=== PATIENT | male | born 1965 | race Two or more races ===

== ENCOUNTER 2018-10-05 19:37 | Inpatient (IN) | payer OTHER ==
[~2018-10-05] VITALS: Ht 170.2 cm; Wt 73.9 kg
--- NOTE | 2018-10-05 19:44 | NUR ---
PT BIB SELF FROM HOME FOR ABD PAIN AND BACK PAIN, PT AAOX4, -SOB, NAD NOTED, VSS, PENDING MD PIKE
[2018-10-05 20:24] LABS: BASOPHILS % (AUTO) 0.5 % (0.0-2.0); EOSINOPHILS % (AUTO) 1.7 % (0.0-6.0); HEMATOCRIT 44 % (39-51); HEMOGLOBIN 14.7 g/dL (13.5-17.5); LYMPHOCYTES # (AUTO) 1.7 /CMM (0.8-4.8); LYMPHOCYTES % (AUTO) 17.3 % (20.0-44.0); MEAN CORPUSCULAR HGB CONC 33 g/dl (31.0-36.0); MEAN CORPUSCULAR VOLUME 81 fL (80-96); MONOCYTES # (AUTO) 0.9 /CMM (0.1-1.30); NEUTROPHILS # (AUTO) 6.9 /CMM (1.8-8.9); NEUTROPHILS % (AUTO) 71.5 % (43.0-81.0); PLATELET COUNT (AUTO) 164 /CMM (150-450); RED BLOOD CELL COUNT(AUTO) 5.46 MIL/uL (4.5-6.0); WHITE BLOOD COUNT (AUTO) 9.6 K/uL (4.3-11.0)
[2018-10-05] MEDS ORDERED: IBUPROFEN 600 MG TABLET PO ONE ×2 (20:30→20:42)
[2018-10-05] MEDS ORDERED: ACETAMINOPHEN ES 500 MG TABLET PO ONE (20:30)
[2018-10-05 20:35] LABS: CARBON DIOXIDE 22 mmol/L (21-32); CHLORIDE 105 mmol/L (98-107); CREATININE 1.3 mg/dL (0.6-1.3); GLUCOSE 171 mg/dL (74-106); POTASSIUM 4.1 mmol/L (3.5-5.1); SODIUM SERUM 140 mmol/L (136-145); UREA NITROGEN, BLOOD 14 mg/dL (7-18)
[2018-10-05 20:37] LABS: APPEARANCE,URINE Clear (CLEAR); BILIRUBIN,URINE Negative (NEGATIVE); BLOOD, URINE Small Ery/uL (NEGATIVE); COLOR,URINE Yellow (YELLOW); KETONES,URINE Negative (NEGATIVE); LEUKOCYTE ESTERASE ,URINE Negative (NEGATIVE); NITRITE, URINE Negative (NEGATIVE); PROTEIN,URINE Trace mg/dl (NEGATIVE); UGLUCOSE 500 MG/DL mg/dL (NEGATIVE); UROBILINOGEN,URINE 0.2 EU/dL (0.2)
[2018-10-05] MEDS ORDERED: ACETAMINOPHEN ES 500 MG TABLET ONE (20:41)
[2018-10-05 20:42] LABS: ALANINE AMINOTRANSFERASE 47 U/L (12-78); ALBUMIN 3.5 g/dL (3.4-5.0); ALKALINE PHOSPHATASE 92 U/L (46-116); ASPARTATE AMINOTRANSFERASE 23 U/L (15-37); BILIRUBIN,DIRECT 0.1 mg/dL (0.0-0.2); BILIRUBIN,TOTAL 0.4 mg/dL (0.2-1.0); LIPASE 129 U/L (73-393); TOTAL PROTEIN, SERUM 7.8 g/dL (6.4-8.2)
[2018-10-05 20:43] LABS: BACTERIA,URINE Rare /HPF (None Seen); SQUAMOUS EPITHELIAL CELL,UR Few /HPF (None Seen); WBC,URINE NONE SEEN /HPF (0-3)
--- NOTE | 2018-10-05 20:44 | NUR ---
PT MEDICATED ORDERED.
[2018-10-05] MEDS ORDERED: IOHEXOL-300 100 ML VIAL IV ONE (21:10)
--- NOTE | 2018-10-05 21:15 | NUR ---
L AC 20G IV FOR CONTRAST CT.
[2018-10-05] MEDS ORDERED: PIPERACILLIN /TAZOBACTAM 3.375 G VIAL IV ONE (21:56)
[2018-10-05] MEDS ORDERED: PIPERACILLIN /TAZOBACTAM 3.375 G in IV D5W 50 ML IV ONE (22:00)
[2018-10-05] MEDS ORDERED: IV NS 0.9% 1,000 ML BAG IV ONE ×2 (22:00→23:00)
--- NOTE | 2018-10-05 22:55 | NUR ---
CALLED FOR TELE BED, TURNED IN MOVE SHEET. PER ADMITTING PT IS AUTH. TO STAY.
--- NOTE | 2018-10-05 22:56 | NUR ---
CALLED DR MOCK FOR SURGICAL CONSULT. LEFT VOICEMAIL REQUESTION TO CALL BACK.
--- NOTE | 2018-10-05 22:58 | NUR ---
GOING TO [facility] [place] BED 316-1
--- NOTE | 2018-10-05 23:05 | NUR ---
REPORT GIVEN TO MANUELA REDD FOR YOCASTA; PT WILL BE TRANSPORTED TO 3RD FLOOR VIA ACLS PROTOCOL
[2018-10-05] MEDS ORDERED: METF-442 PO (23:08)
[2018-10-05] MEDS ORDERED: ASPI-1152 PO (23:08)
[2018-10-05] MEDS ORDERED: EMPA10TA PO (23:08)
[2018-10-05] MEDS ORDERED: GEMF600T5 PO (23:08)
[2018-10-05] MEDS ORDERED: OMEP20CA11 PO (23:08)
[2018-10-05] MEDS ORDERED: LISI-603 PO (23:08)
[2018-10-05] MEDS ORDERED: CARV25TA2 PO (23:08)
[2018-10-05] MEDS ORDERED: MORPHINE SULFATE INJ 2 MG/ML DISP.SYRIN IV PRN (23:30)
[2018-10-05] MEDS ORDERED: ACETAMINOPHEN 650 MG/SUPP.RECT RC PRN (23:30)
[2018-10-05] MEDS ORDERED: DEXTROSE 50%-WATER 50 ML DISP.SYRIN IV PRN (23:30)
[2018-10-05] MEDS ORDERED: ONDANSETRON HCL/PF 4 MG/2 ML VIAL IVP PRN (23:30)
[2018-10-06] MEDS ORDERED: hydrALAZINE HCL IV 20 MG VIAL IV PRN
[2018-10-06] MEDS ORDERED: PIPERACILLIN /TAZOBACTAM 3.375 G in IV D5W 50 ML IV SCH ×2
--- NOTE | 2018-10-06 00:19 | NUR ---
PT TRANSPORTED TO 3RD FLOOR VIA ACLS PROTOCOL;' PER DR DELROY MOCK IS ALREADY AWARE AND PT CAN GO UP TO INPATIENT FLOOR
--- NOTE | 2018-10-06 00:30 | NUR ---
RN ADMITTING NOTES RECEIVED REPORT FROM TERRAZZO POLISHER TOOTIE. Pt ARRIVED TO THE FLOOR VIA GURNEY. Pt WAS ABLE TO WALK TO ROOM BED WITH STEADY GAIT. AT BEDSIDE. Pt IS A/OX4, BRITISH SPEAKING, UNDERSTANDS SOME SWISS. NO S/S OF ACUTE DISTRESS OR SOB NOTED. ON TELE MONITOR; SR 78. IV ACCESS ON LAC #20G. SAFETY MEASURES IN PLACE. BED LOW, LOCKED, HOB ELEVATED, SIDE RAILS UP, CALL LIGHT AND BEDSIDE TABLE WITHIN REACH. Pt IS NPO. WILL CONTINUE TO MONITOR Pt's CONDITION AND SAFETY THROUGHOUT THE NIGHT.
[2018-10-06 00:46] VITALS: BP 127/81
--- NOTE | 2018-10-06 01:00 | NUR ---
RN NOTES BG 98. NPO STATUS. NO INSULIN NEEDED.
[2018-10-06] MEDS: BLOOD SUGAR DIAGNOSTIC 1 EACH STRIP IN SCH ×4 (01:53→17:10)
[2018-10-06] MEDS: IV NS 0.9% 1,000 ML IV PRN (01:53)
[2018-10-06 04:00] VITALS: BP 145/96
[2018-10-06] MEDS ORDERED: PIPERACILLIN /TAZOBACTAM 3.375 G in IV NS 0.9% 50 ML IV ONE (04:00)
--- NOTE | 2018-10-06 04:00 | NUR ---
RN NOTES Pt SHOWED CHANGE OF CARDIAC RHYTHM ON THE TELE MONITOR. ORDERED URGENT EKG TO VERIFY THE CHANGES.
[2018-10-06] MEDS ORDERED: PIPERACILLIN /TAZOBACTAM 3.375 G VIAL IV ONE (04:08)
--- NOTE | 2018-10-06 04:30 | NUR ---
RN NOTES EKG WAS DONE. EKG READING SHOWED SINUS RHYTHM W/1ST DEGREE AV BLOCK.
--- NOTE | 2018-10-06 06:30 | NUR ---
RN NOTES BG 117. NPO STATUS. NO INSULIN COVERAGE NEEDED.
--- NOTE | 2018-10-06 06:40 | NUR ---
RN CLOSING NOTES NO MAJOR SIGNIFICANT CHANGES IN Pt's CONDITION. NO S/S OF ACUTE DISTRESS OR SOB NOTED DURING THE NIGHT. Pt DENIES HAVING ANY CP. Pt IS RESTING IN BED. RESPIRATIONS EVEN AND UNLABORED. TELE READING SR 81 WITH 1ST DEGREE AV BLOCK. SAFETY MEASURES IN PLACE. WILL ENDORSE TO DAYSHIFT RN FOR Pt's YOCASTA.
[2018-10-06 07:09] LABS: BASOPHILS % (AUTO) 0.3 % (0.0-2.0); EOSINOPHILS % (AUTO) 1.9 % (0.0-6.0); HEMATOCRIT 40 % (39-51); HEMOGLOBIN 13.4 g/dL (13.5-17.5); LYMPHOCYTES # (AUTO) 1.2 /CMM (0.8-4.8); LYMPHOCYTES % (AUTO) 19.7 % (20.0-44.0); MEAN CORPUSCULAR HGB CONC 34 g/dl (31.0-36.0); MEAN CORPUSCULAR VOLUME 81 fL (80-96); MONOCYTES # (AUTO) 0.6 /CMM (0.1-1.30); MONOCYTES % (AUTO) 9.7 % (2.0-12.0); NEUTROPHILS # (AUTO) 4.2 /CMM (1.8-8.9); NEUTROPHILS % (AUTO) 68.4 % (43.0-81.0); PLATELET COUNT (AUTO) 110 /CMM (150-450); RED BLOOD CELL COUNT(AUTO) 4.93 MIL/uL (4.5-6.0); WHITE BLOOD COUNT (AUTO) 6.1 K/uL (4.3-11.0)
[2018-10-06 07:13] LABS: CALCIUM, SERUM 8.1 mg/dL (8.5-10.1); CREATININE 1.2 mg/dL (0.6-1.3); MAGNESIUM 1.9 mg/dL (1.8-2.4); PHOSPHORUS 2.7 mg/dL (2.5-4.9); POTASSIUM 3.8 mmol/L (3.5-5.1)
--- NOTE | 2018-10-06 07:30 | NUR ---
GENETICS TEACHER OPENING NOTES patient remains on room air, no sob noted, patient denies pain at this time. Patient a/o x4 and can communicate via welsh. Patient lying down comfortably on his bed. Patient remains NPO at this time. NO BLOOD TRANSFUSION per patients request. Left AC 20 gauge, NS @ 100 mL per hour remains patent. Bed at the lowest setting, call light within reach.
[2018-10-06 08:00] VITALS: BP 152/92
[2018-10-06] MEDS: FAMOTIDINE/PF INJ 20 MG/2 ML VIAL IV SCH (08:01)
[2018-10-06] MEDS: PIPERACILLIN /TAZOBACTAM 3.375 G in IV D5W 100 ML IV SCH ×2 (09:14→17:03)
[2018-10-06 12:00] VITALS: BP 148/87
[2018-10-06 16:00] VITALS: BP 123/89
--- NOTE | 2018-10-06 18:18 | NUR ---
RN MS CLOSING NOTES Patient remains on room air, no sob noted, patient denies pain at this time. Patient remains a/o x4, and has no complaints at this time. Patient remains BRP and has good gait. Patient's Left AC 20 gauge remains patent. Running NS @ 100mL per hour. blood sugar has been in the normal range. Patient is Jehovahs witness and DOES NOT want any blood transfusion. Bowel rest, continue abx, and remain NPO. Bed at the lowest setting, call light within reach, will give report to IVANIA AKHTAR for YOCASTA bedside.
--- NOTE | 2018-10-06 19:10 | NUR ---
MS RN NOTES RECEIVED PT IN BED AWAKE AND ABLE TO MAKE NEEDS KNOWN. PT A/O X3. RESPIRATIONS EVEN AND UNLABORED WITH NO S/S OF ACUTE DISTRESS OR SOB NOTED. NO COMPLAINTS OF PAIN AT THIS TIME. PT WITH LAC #20G RUNNING NS@ 100ML/HR. SAFETY MEASURES IN PLACE WITH BED IN LOWEST LOCKED POSITION WITH SIDE RAILS UP X2. CALL LIGHT WITHIN REACH. WILL CONTINUE TO MONITOR.
[2018-10-06 20:00] VITALS: BP 127/72
[2018-10-07] MEDS: BLOOD SUGAR DIAGNOSTIC 1 EACH STRIP IN SCH ×4 (00:56→17:03)
[2018-10-07] MEDS: PIPERACILLIN /TAZOBACTAM 3.375 G in IV D5W 100 ML IV SCH ×3 (02:44→17:03)
--- NOTE | 2018-10-07 07:15 | NUR ---
MS RN OPENING NOTES RECEIVED PT SITTING UP IN BED, RESTING COMFORTABLY. PT IS A/O X4, AFEBRILE. RESPIRATIONS ARE EVEN AND UNLABORED, NOT IN ANY ACUTE DISTRESS NOTED. PT DENIES ANY PAIN AT THIS TIME, NO C/O SOB, N/V. IV SITE TO LAC INTACT, NO INFILTRATION NOTED. DRESSING KEPT CLEAN AND DRY. SAFETY MEASURES ARE IN PLACE. INSTRUCTED PT TO USE CALL LIGHT WHEN ASSISTANCE IS NEEDED, CALL LIGHT IS LEFT WITHIN REACH. WILL MONITOR THROUGHOUT SHIFT FOR CONTINUITY OF CARE.
--- NOTE | 2018-10-07 07:47 | NUR ---
MS RN NOTES PT IN BED AWAKE AND ABLE TO MAKE NEEDS KNOWN. PT A/O X3. RESPIRATIONS EVEN AND UNLABORED WITH NO S/S OF ACUTE DISTRESS OR SOB NOTED THROUGHOUT SHIFT. NO COMPLAINTS OF PAIN AT THIS TIME. PT WITH LAC #20G RUNNING NS@ 100ML/HR. SAFETY MEASURES IN PLACE WITH BED IN LOWEST LOCKED POSITION WITH SIDE RAILS UP X2. CALL LIGHT WITHIN REACH. WILL ENDORSE TO ONCOMING NURSE FOR YOCASTA.
[2018-10-07 08:00] VITALS: BP 140/92
[2018-10-07] MEDS: FAMOTIDINE/PF INJ 20 MG/2 ML VIAL IV SCH (09:27)
--- NOTE | 2018-10-07 11:50 | NUR ---
MS RN NOTES-- BLOOD SUGAR 118. NO INSULIN COVERAGE. NO S/SX OF HYPOGLYCEMIA. WILL CONTINUE TO MONITOR.
--- NOTE | 2018-10-07 12:01 | NUR ---
MS RN NOTES-- PT WAS SEEN AND EXAMINED BY DR. VILLALPANDO.
--- NOTE | 2018-10-07 13:34 | NUR ---
MS RN NOTES-- PT ABLE TO MAKE NEEDS KNOWN, NEEDS MET AND RENDERED. PT IS NOT IN ANY APPARENT DISTRESS NOTED. WILL CONTINUE TO MONITOR.
[2018-10-07 16:00] VITALS: BP 160/96
--- NOTE | 2018-10-07 17:12 | NUR ---
MS RN NOTES-- BLOOD SUGAR 108, NO INSULIN COVERAGE. NO S/SX OF HYPOGLYCEMIA. WILL CONTINUE TO MONITOR.
--- NOTE | 2018-10-07 18:38 | NUR ---
MS RN CLOSING NOTES ALL DUE MEDS GIVEN, NEEDS MET AND RENDERED. PT IS A/O X4, AFEBRILE. RESPIRATIONS ARE EVEN AND UNLABORED, NOT IN ANY ACUTE DISTRESS NOTED. PT DENIES ANY PAIN, NO C/O SOB, N/V AT THIS TIME. IV SITE TO LAC 20G INTACT, NO INFILTRATION NOTED. DRESSING KEPT CLEAN AND DRY. REMINDED PT TO USE CALL LIGHT WHEN ASSISTANCE IS NEEDED, CALL LIGHT IS LEFT WITHIN REACH. WILL ENDORSE TO NEXT SHIFT FOR CONTINUITY OF CARE.
--- NOTE | 2018-10-07 19:05 | NUR ---
MS RN NOTE RECEIVED PT IN STABLE CONDITION A&O X4, CURRENTLY IN BED WATCHING TV AND FAMILY AT BEDSIDE. NO SIGNS OF SOB OR DISTRESS, NO C/O PAIN. IV IN LAC IN PLACE WITH IVF INFUSING. PT AWARE HE IS NPO PER MD ORDER. ALL CURRENT NEEDS ATTENDED TO. BED LOW, LOCKED, UPPER RAILS UP, AND CALL LIGHT WITHIN REACH. WILL CONT. TO MONITOR.
[2018-10-07 20:00] VITALS: BP 147/97
[2018-10-07] MEDS: IV NS 0.9% 1,000 ML IV PRN (22:34)
[2018-10-08] MEDS: BLOOD SUGAR DIAGNOSTIC 1 EACH STRIP IN SCH ×5 (00:32→23:15)
[2018-10-08] MEDS: PIPERACILLIN /TAZOBACTAM 3.375 G in IV D5W 100 ML IV SCH ×3 (01:33→17:01)
--- NOTE | 2018-10-08 06:15 | NUR ---
MS RN NOTE PT IN STABLE CONDITION A&O X4, CURRENTLY RESTING IN BED. NO SIGNS OF SOB OR DISTRESS, NO C/O PAIN. IV IN LAC IN PLACE WITH IVF INFUSING. PT AWARE HE IS NPO PER MD ORDER. ALL CURRENT NEEDS ATTENDED TO. BED LOW, LOCKED, UPPER RAILS UP, AND CALL LIGHT WITHIN REACH. WILL CONT. TO MONITOR AND ENDORSE TO NEXT SHIFT FOR YOCASTA.
[2018-10-08 06:46] LABS: BASOPHILS % (AUTO) 0.3 % (0.0-2.0); EOSINOPHILS % (AUTO) 2.7 % (0.0-6.0); HEMATOCRIT 42 % (39-51); HEMOGLOBIN 14.3 g/dL (13.5-17.5); LYMPHOCYTES # (AUTO) 1.3 /CMM (0.8-4.8); LYMPHOCYTES % (AUTO) 23.8 % (20.0-44.0); MEAN CORPUSCULAR HGB CONC 34 g/dl (31.0-36.0); MEAN CORPUSCULAR VOLUME 80 fL (80-96); MONOCYTES # (AUTO) 0.7 /CMM (0.1-1.30); MONOCYTES % (AUTO) 13.1 % (2.0-12.0); NEUTROPHILS # (AUTO) 3.3 /CMM (1.8-8.9); NEUTROPHILS % (AUTO) 60.1 % (43.0-81.0); PLATELET COUNT (AUTO) 143 /CMM (150-450); RED BLOOD CELL COUNT(AUTO) 5.25 MIL/uL (4.5-6.0); WHITE BLOOD COUNT (AUTO) 5.5 K/uL (4.3-11.0)
[2018-10-08 07:07] LABS: CREATININE 1.2 mg/dL (0.6-1.3); MAGNESIUM 2.1 mg/dL (1.8-2.4); PHOSPHORUS 2.4 mg/dL (2.5-4.9); POTASSIUM 3.7 mmol/L (3.5-5.1)
--- NOTE | 2018-10-08 07:47 | NUR ---
MS/RN OPENING NOTE PATIENT IN BED IN STABLE CONDITION. A/O X 4. NO SIGNS OF ACUTE DISTRESS. NO COMPLAIN OF PAIN OR DISCOMFORT. NPO STATUS AT THIS TIME. ALL NEEDS ATTENDED TO. CALL LIGHT WITHIN REACH. WILL CONTINUE TO MONITOR TO ENSURE SAFETY.
[2018-10-08 08:00] VITALS: BP 153/94
[2018-10-08] MEDS: FAMOTIDINE/PF INJ 20 MG/2 ML VIAL IV SCH (09:23)
--- NOTE | 2018-10-08 11:41 | NUR ---
MS/RN SEEN AND EXAMINED BY DR VILLALPANDO WITH ORDERS TO START PATIENT ON CLEAR LIQUIDS DIET. PATIENT AWARE.
[2018-10-08] MEDS: Potassium Phosphate meq 11 MEQ in IV NS 0.9% 100 ML IV SCH ×2 (12:40→16:05)
[2018-10-08 16:00] VITALS: BP 152/100
[2018-10-08] MEDS: ACETAMINOPHEN 325 MG TABLET PO PRN (17:01)
--- NOTE | 2018-10-08 18:20 | NUR ---
MS/RN CLOSING NOTE PATIENT IN BED IN STABLE CONDITION. A/O X 4. NO SIGNS OF ACUTE DISTRESS. NO COMPLAIN OF PAIN OR DISCOMFORT. STARTED ON CLEAR LIQUIDS AND TOLERATING WELL, NO COMPLAIN OF N/V OR DIARRHEA. ALL NEEDS ATTENDED TO. CALL LIGHT WITHIN REACH. WILL ENDORSE TO NEXT SHIFT FOR CONTINUITY OF CARE.
--- NOTE | 2018-10-08 19:05 | NUR ---
MS RN OPENING NOTES Received patient sitting up in bed, alert, oriented x 4. Family at bedside. Breathing even and unlabored. Not in any distress, on room air. No complaints of pain or discomfort at this time. IV Zosyn infusing at 25mL/hr. Safety measures in place. Call light within reach, bed in low, locked position. Will continue to monitor accordingly
[2018-10-08 20:00] VITALS: BP 158/107
[2018-10-08 20:58] VITALS: BP 147/91
[2018-10-08 21:00] VITALS: BP 147/91
--- NOTE | 2018-10-08 21:00 | NUR ---
RN NOTES BP rechecked- 147/91mmHg
--- NOTE | 2018-10-08 23:16 | NUR ---
RN NOTES BSL checked- 124mg/dL. No insulin coverage per sliding scale
[2018-10-09] MEDS: IV NS 0.9% 1,000 ML IV PRN (00:33)
[2018-10-09] MEDS: PIPERACILLIN /TAZOBACTAM 3.375 G in IV D5W 100 ML IV SCH ×3 (01:25→17:46)
--- NOTE | 2018-10-09 02:55 | NUR ---
RN NOTES Seen and examined by Dr. Shiraz Moore
[2018-10-09 06:07] LABS: BASOPHILS % (AUTO) 0.4 % (0.0-2.0); EOSINOPHILS % (AUTO) 2.9 % (0.0-6.0); HEMATOCRIT 42 % (39-51); LYMPHOCYTES # (AUTO) 1.3 /CMM (0.8-4.8); MEAN CORPUSCULAR HGB CONC 34 g/dl (31.0-36.0); MEAN CORPUSCULAR VOLUME 80 fL (80-96); MONOCYTES # (AUTO) 0.5 /CMM (0.1-1.30); MONOCYTES % (AUTO) 10.5 % (2.0-12.0); NEUTROPHILS # (AUTO) 2.9 /CMM (1.8-8.9); NEUTROPHILS % (AUTO) 60.2 % (43.0-81.0); PLATELET COUNT (AUTO) 146 /CMM (150-450); RED BLOOD CELL COUNT(AUTO) 5.22 MIL/uL (4.5-6.0); WHITE BLOOD COUNT (AUTO) 4.9 K/uL (4.3-11.0)
[2018-10-09] MEDS: BLOOD SUGAR DIAGNOSTIC 1 EACH STRIP IN SCH ×3 (06:09→21:43)
[2018-10-09] MEDS: INSULIN REGULAR, HUMAN 100 UNIT/ML 3 ML VIAL SQ PRN ×3 (06:12→22:20)
--- NOTE | 2018-10-09 06:12 | NUR ---
RN NOTES BSL- 152mg/dL. 2 units insulin given per sliding scale
[2018-10-09 06:29] LABS: CALCIUM, SERUM 8.6 mg/dL (8.5-10.1); CREATININE 1.1 mg/dL (0.6-1.3); PHOSPHORUS 2.7 mg/dL (2.5-4.9); POTASSIUM 3.5 mmol/L (3.5-5.1)
--- NOTE | 2018-10-09 06:56 | NUR ---
MS RN CLOSING NOTES Patient still sleeping in bed, easily arousable. Breathing even and unlabored. No distress noted, on room air. No acute changes overnight. Peripheral IV infusing at 100mL/hr. All needs attended. Safety measures in place. Call light within reach, bed in low, locked position. Will endorse YOCASTA to oncoming RN
--- NOTE | 2018-10-09 07:15 | NUR ---
RN OPENING NOTES PT AWAKE AND RESTING IN BED. NO COMPLAINTS OF PAIN, SOB, DISTRESS. NO S/S OF BLEEDING. PT STATES THAT HE IS "FEELING MUCH BETTER TODAY". PT HAS RIGHT HAND #20 INTACT AND PATENT RUNNING NS@100 ML/HR. SAFETY PRECAUTIONS IN PLACE, BED IN LOWEST LOCKED POSITION, X2 SIDE RAILS UP AND CALL LIGHT WITHIN REACH. WILL CONTINUE TO MONITOR.
[2018-10-09 08:00] VITALS: BP 159/98
--- NOTE | 2018-10-09 09:00 | NUR ---
RN NOTES PT TOLERATED BREAKFAST WELL. WILL ADVANCE DIET PER DR MOCK.
[2018-10-09] MEDS: FAMOTIDINE/PF INJ 20 MG/2 ML VIAL IV SCH (09:10)
[2018-10-09] MEDS ORDERED: ENALAPRILAT INJ (1.25 MG/ML) 1.25 MG/ML VIAL IV PRN (13:00)
[2018-10-09] MEDS ORDERED: BLOOD SUGAR DIAGNOSTIC 1 EACH STRIP IN SCH ×2 (13:00→17:30)
[2018-10-09] MEDS ORDERED: DEXTROSE 50%-WATER 50 ML DISP.SYRIN IV PRN (13:00)
[2018-10-09] MEDS ORDERED: hydrALAZINE HCL 25 MG TABLET PO PRN (13:00)
[2018-10-09] MEDS ORDERED: IV D5/ 0.9% NACL 1,000 ML IV PRN (13:00)
--- NOTE | 2018-10-09 13:37 | NUR ---
RN NOTES ORDERS CLARIFIED: ACCU-CHECK ACHS STOP ALL IV FLUIDS
[2018-10-09] MEDS: CARVEDILOL 12.5 MG TABLET PO SCH ×2 (13:57→20:11)
[2018-10-09] MEDS: LISINOPRIL (20MG) 20 MG TABLET PO SCH (13:57)
[2018-10-09 15:32] VITALS: BP 139/92
--- NOTE | 2018-10-09 18:35 | NUR ---
RN CLOSING NOTES PT AWAKE AND RESTING IN BED. AT BEDSIDE. NO COMPLAINTS OF PAIN, SOB, DISTRESS DURING SHIFT. NO S/S OF BLEEDING. PT STATES THAT HE IS HAVING BOWEL MOVEMENTS AND NO PAIN. PT HAS RIGHT HAND #20 INTACT AND PATENT AND RUNNING ZOSYN. SAFETY PRECAUTIONS IN PLACE, BED IN LOWEST LOCKED POSITION, X2 SIDE RAILS UP AND CALL LIGHT WITHIN REACH. WILL ENDORSE TO DIRECTOR MEDICAL NURSE FOR CONTINUITY OF CARE.
[2018-10-09] MEDS: ACETAMINOPHEN 325 MG TABLET PO PRN (18:41)
--- NOTE | 2018-10-09 19:30 | NUR ---
MS RN OPENING NOTES: RECEIVED PT ON ROOM AIR AND IS TOLERATING WELL. PT SITTING UP IN CHAIR AT THIS TIME WITH MULTIPLE FAMILY MEMBERS AT BEDSIDE. NO SOB NOTED. NO S/S OF DISTRESS. PT IS A/OX4. PT HAS IV ON R HAND #20G AND IS BEING INFUSED WITH ZOSYN AT 25ML/HR. BED KEPT IN LOW, LOCKED POSITION, AND SIDE RAILS X 2UP. WILL CONTINUE TO MONITOR PT.
[2018-10-09 20:00] VITALS: BP 155/96
[2018-10-10] MEDS: PIPERACILLIN /TAZOBACTAM 3.375 G in IV D5W 100 ML IV SCH ×2 (01:15→09:35)
--- NOTE | 2018-10-10 06:20 | NUR ---
MS RN CLOSING NOTES: ALL NEEDS WERE ATTENDED AND ANTICIPATED FOR. PT KEPT CLEAN, DRY, AND COMFORTABLE. IV REMAINS INTACT. CURRENTLY H/L. NO SOB NOTED. NO SO S/S OF DISTRESS. BLOOD SUGAR THIS AM WAS 108. NO INSULIN WAS ADMINISTERED. WILL ENDORSE TO AM NURSE FOR YOCASTA.
[2018-10-10] MEDS: INSULIN REGULAR, HUMAN 100 UNIT/ML 3 ML VIAL SQ PRN (06:22)
[2018-10-10] MEDS: BLOOD SUGAR DIAGNOSTIC 1 EACH STRIP IN SCH ×2 (06:37→12:00)
[2018-10-10 07:14] LABS: CALCIUM, SERUM 8.7 mg/dL (8.5-10.1); CREATININE 1.1 mg/dL (0.6-1.3); PHOSPHORUS 2.8 mg/dL (2.5-4.9); POTASSIUM 3.7 mmol/L (3.5-5.1)
--- NOTE | 2018-10-10 07:50 | NUR ---
RN OPENING NOTES PT AWAKE AND RESTING IN BED. NO COMPLAINTS OF PAIN, SOB, DISTRESS AT THIS TIME. NO S/S OF BLEEDING. PT STATES THAT HE IS "FEELING MUCH BETTER TODAY" AND HAS HAD 2 "NORMAL" BOWEL MOVEMENTS. PT HAS RIGHT HAND #20 INTACT AND PATENT. SAFETY PRECAUTIONS IN PLACE, BED IN LOWEST LOCKED POSITION, X2 SIDE RAILS UP AND CALL LIGHT WITHIN REACH. WILL CONTINUE TO MONITOR.
[2018-10-10] MEDS: CARVEDILOL 12.5 MG TABLET PO SCH (08:17)
[2018-10-10 08:18] VITALS: BP 161/95
[2018-10-10] MEDS: LISINOPRIL (20MG) 20 MG TABLET PO SCH (08:18)
[2018-10-10] MEDS: FAMOTIDINE/PF INJ 20 MG/2 ML VIAL IV SCH (08:18)
[2018-10-10] MEDS ORDERED: LEVO750T21 PO (10:50)
--- NOTE | 2018-10-10 13:18 | NUR ---
rn patient services notes pt stable at discharge. all discharge paperwork discussed, signed, copied, and given to patient. all patient belongings taken home with patient. iv and id removed at discharge. pt accompanied by at discharge. rn escorted patient off of unit at 1318.
== END 2018-10-10 13:15 | disposition home or self-care (01) | DRG 244 ==
LOC: ER 19:48 → TELE 23:01 → MED 10-06 13:22
PROVIDERS: ADMIT Nurse Practitioner Acute Care; ATTEND Internal Medicine
DX: K57.20 Diverticulitis of large intestine with perforation and abscess without bleeding (principal); E87.2 Acidosis; K76.0 Fatty (change of) liver, not elsewhere classified; E66.9 Obesity, unspecified; E78.5 Hyperlipidemia, unspecified; E11.9 Type 2 diabetes mellitus without complications; I10 Essential (primary) hypertension; K21.9 Gastro-esophageal reflux disease without esophagitis; Z98.890 Other specified postprocedural states; Z90.49 Acquired absence of other specified parts of digestive tract; Z68.32 Body mass index [BMI] 32.0-32.9, adult; Z79.84 Long term (current) use of oral hypoglycemic drugs; Z79.82 Long term (current) use of aspirin; Z79.899 Other long term (current) drug therapy; K56.0 Paralytic ileus
CPT/HCPCS: 36415; 71045-TC; 80048-TC; 80061-TC; 80076-TC; 81000-TC; 82962-TC; 83605-TC; 83690-TC; 83735-TC; 84100-TC; 84484-TC; 85025-TC; 85730-TC; 86850-TC; 87040-TC; 87081-TC; 87086-TC; A4216; G0378; J0360; J1815; J2270; J2405; J2543; J3490; J7030; J7060; Q9967

== ENCOUNTER 2020-02-16 16:34 | Inpatient (IN) | payer OTHER ==
[~2020-02-16] VITALS: Ht 165.1 cm; Wt 86.6 kg
[~2020-02-16 16:34] MED LIST: ASPI-1420 PO; CARV25TA2 PO; EMPA10TA PO; GEMF600T5 PO; LEVO750T21 PO; LISI-603 PO; METF-442 PO; OMEP20CA15 PO
[2020-02-16] MEDS ORDERED: ERTU5TAB PO (17:17)
[2020-02-16] MEDS ORDERED: DEXAMETHASONE SOD PHOSPHATE 4 MG/ML VIAL IV ONE (17:30)
[2020-02-16] MEDS ORDERED: DEXAMETHASONE SOD PHOSPHATE 4 MG/ML VIAL ONE (17:50)
[2020-02-16] MEDS ORDERED: VANCOMYCIN 1 GM in IV D5W 250 ML IV ONE (18:00)
[2020-02-16] MEDS ORDERED: PIPERACILLIN /TAZOBACTAM 3.375 G in IV D5W 50 ML IV ONE (18:00)
--- NOTE | 2020-02-16 18:00 | NUR ---
PT C/O FLU LIKE SYMPTOMS. PT SEEN & EVAL'D BY MORALES TRISTAN. DENIES CP, DIZZINESS, N/V AT THIS TIME. WILL CONT TO MONITOR.
[2020-02-16 18:09] LABS: BASOPHILS % (AUTO) 0.3 % (0.0-2.0); EOSINOPHILS % (AUTO) 0.3 % (0.0-6.0); HEMATOCRIT 41 % (39-51); HEMOGLOBIN 13.6 g/dL (13.5-17.5); LYMPHOCYTES # (AUTO) 0.5 /CMM (0.8-4.8); MEAN CORPUSCULAR HGB CONC 33 g/dl (31.0-36.0); MEAN CORPUSCULAR VOLUME 79 fL (80-96); MONOCYTES # (AUTO) 0.2 /CMM (0.1-1.30); MONOCYTES % (AUTO) 7.4 % (2.0-12.0); NEUTROPHILS # (AUTO) 2.4 /CMM (1.8-8.9); PLATELET COUNT (AUTO) 105 /CMM (150-450); RED BLOOD CELL COUNT(AUTO) 5.19 MIL/uL (4.5-6.0); WHITE BLOOD COUNT (AUTO) 3.2 K/uL (4.3-11.0)
[2020-02-16 18:12] LABS: CALCIUM, SERUM 8.5 mg/dL (8.5-10.1); CARBON DIOXIDE 24 mmol/L (21-32); CHLORIDE 100 mmol/L (98-107); CREATININE 1.3 mg/dL (0.6-1.3); GLUCOSE 138 mg/dL (74-106); POTASSIUM 4.3 mmol/L (3.5-5.1); SODIUM SERUM 135 mmol/L (136-145); UREA NITROGEN, BLOOD 18 mg/dL (7-18)
[2020-02-16 18:18] LABS: ALANINE AMINOTRANSFERASE 82 U/L (12-78); ALBUMIN 3.2 g/dL (3.4-5.0); ALKALINE PHOSPHATASE 65 U/L (46-116); ASPARTATE AMINOTRANSFERASE 64 U/L (15-37); BILIRUBIN,TOTAL 0.4 mg/dL (0.2-1.0); TOTAL PROTEIN, SERUM 7.5 g/dL (6.4-8.2)
[2020-02-16] MEDS ORDERED: IV NS 0.9% 250 ML IV ONE (18:20)
[2020-02-16] MEDS ORDERED: IOHEXOL-300 100 ML VIAL IV ONE (18:20)
--- NOTE | 2020-02-16 18:25 | NUR ---
MEDICATED ORDERED, PT VIKTOR WELL. WILL CONT TO MONITOR.
--- NOTE | 2020-02-16 19:21 | NUR ---
CALLED [employer] PAGED FLIGHT RADIO OPERATOR
--- NOTE | 2020-02-16 19:37 | NUR ---
Call from lab. Rapid covid positive
--- NOTE | 2020-02-16 20:01 | NUR ---
CALLED [employer] PAGED BOWL SANDER
--- NOTE | 2020-02-16 20:11 | NUR ---
PT ASLEEP, EASILY AWAKEN BY VERBAL STIMULI. DENIES CP, SOB, DIZZINESS, N/V AT THIS TIME. PT STS HE'S FEELING MUCH BETTER. RR EVEN & UNLABORED. VSS. WILL CONT TO MONITOR.
[2020-02-16] MEDS ORDERED: ONDANSETRON HCL/PF 4 MG/2 ML VIAL IVP PRN (20:30)
[2020-02-16] MEDS ORDERED: ACETAMINOPHEN 650 MG/SUPP.RECT RC PRN (20:30)
[2020-02-16] MEDS ORDERED: ALBUTEROL SULFATE 8 GM HFA.AER.AD IH PRN (20:30)
[2020-02-16] MEDS ORDERED: DEXTROSE 50%-WATER 50 ML DISP.SYRIN IV PRN (20:30)
[2020-02-16 21:43] LABS: C-REACTIVE PROTEIN 7.5 mg/dL (0.0-0.9)
--- NOTE | 2020-02-16 21:43 | NUR ---
Ajith Reynolds [phone]
[2020-02-17] MEDS ORDERED: CEFTRIAXONE 1GM BAG (ER ONLY) 0 ML IV ONE (01:25)
[2020-02-17] MEDS ORDERED: AZITHROMYCIN 500 MG VIAL ONE (01:25)
[2020-02-17] MEDS ORDERED: AZITHROMYCIN 250 MG in IV D5W 250 ML IV SCH (01:30)
[2020-02-17] MEDS ORDERED: CEFTRIAXONE 1 G in IV D5W 50 ML IV SCH (01:30)
--- NOTE | 2020-02-17 01:36 | NUR ---
PATIENT IS SLEEPING. EASILY AROUSABLE. BREATHING EVENLY AND UNLABORED ON ROOM AIR. CONNECTED TO THE MONITOR. CALL LIGHT WITHIN REACH. BED AT THE LOWEST POSITION. WILL CONTINUE CLOSELY.
--- NOTE | 2020-02-17 07:30 | NUR ---
called pharmacy for meds. stated that they will deliver Addendum: 02/17/20 at 0840 by SUNSHINE spoke to michael
[2020-02-17] MEDS: BLOOD SUGAR DIAGNOSTIC 1 EACH STRIP IN SCH ×3 (08:00→17:35)
--- NOTE | 2020-02-17 08:09 | NUR ---
bs checked 126. provided with breakfast
[2020-02-17 08:33] LABS: BASOPHILS % (AUTO) 0.2 % (0.0-2.0); HEMATOCRIT 44 % (39-51); HEMOGLOBIN 14.6 g/dL (13.5-17.5); LYMPHOCYTES # (AUTO) 0.6 /CMM (0.8-4.8); LYMPHOCYTES % (AUTO) 16.1 % (20.0-44.0); MEAN CORPUSCULAR HGB CONC 33 g/dl (31.0-36.0); MEAN CORPUSCULAR VOLUME 80 fL (80-96); MONOCYTES # (AUTO) 0.3 /CMM (0.1-1.30); MONOCYTES % (AUTO) 7.1 % (2.0-12.0); NEUTROPHILS # (AUTO) 2.8 /CMM (1.8-8.9); NEUTROPHILS % (AUTO) 76.6 % (43.0-81.0); PLATELET COUNT (AUTO) 111 /CMM (150-450); RED BLOOD CELL COUNT(AUTO) 5.57 MIL/uL (4.5-6.0); WHITE BLOOD COUNT (AUTO) 3.6 K/uL (4.3-11.0)
[2020-02-17] MEDS: PANTOPRAZOLE 40 MG TABLET.DR PO SCH (08:45)
[2020-02-17] MEDS: CEFTRIAXONE 1 G in IV D5W 50 ML IV SCH (08:45)
[2020-02-17] MEDS: GEMFIBROZIL 600 MG TABLET PO SCH ×2 (08:50→15:36)
[2020-02-17] MEDS: CARVEDILOL 12.5 MG TABLET PO SCH ×2 (08:52→20:27)
[2020-02-17] MEDS: METFORMIN 500 MG TABLET PO SCH ×2 (08:52→17:35)
[2020-02-17] MEDS: LISINOPRIL (20MG) 20 MG TABLET PO SCH (08:53)
[2020-02-17] MEDS: AZITHROMYCIN 250 MG in IV D5W 250 ML IV SCH (09:15)
[2020-02-17 09:16] LABS: ALBUMIN 3.1 g/dL (3.4-5.0); BILIRUBIN,TOTAL 0.4 mg/dL (0.2-1.0); CALCIUM, SERUM 8.7 mg/dL (8.5-10.1); CREATININE 1.2 mg/dL (0.6-1.3); MAGNESIUM 2.4 mg/dL (1.8-2.4); PHOSPHORUS 4.6 mg/dL (2.5-4.9); POTASSIUM 4.8 mmol/L (3.5-5.1); TOTAL PROTEIN, SERUM 7.6 g/dL (6.4-8.2)
[2020-02-17] MEDS: ASPIRIN EC 81 MG TABLET.DR PO SCH (09:29)
[2020-02-17] MEDS: ENOXAPARIN SODIUM 40 MG/0.4 ML DISP.SYRIN SQ SCH (09:37)
[2020-02-17 09:44] LABS: THYROID STIMULATING HORMONE 0.668 uIU/mL (0.358-3.74)
--- NOTE | 2020-02-17 12:31 | NUR ---
UPDATED NUMBER [phone].
--- NOTE | 2020-02-17 12:59 | NUR ---
bs 118
--- NOTE | 2020-02-17 13:25 | NUR ---
NURSING SUP GAVE TELE BED 116-1.
--- NOTE | 2020-02-17 13:33 | NUR ---
report given to eros REDD for dominguez.
--- NOTE | 2020-02-17 13:35 | NUR ---
transferred to robert
[2020-02-17 14:00] VITALS: BP 143/83
--- NOTE | 2020-02-17 14:00 | NUR ---
CYBER SPECIAL AGENT NOTES PATIENT RECEIVED VIA GURNEY FROM ER, ALERT AND ORIENTED X 4, NORTHERN IRISH SPEAKING NOTED. ON NASAL CANNULA 4 LITERS, PATIENT STATES SOB UPON EXERTION WHEN SPEAKING MAINLY. DRY COUGH NOTED. PATIENT COMPLAINING OF CHILLS. WILL PLACE HARNESS PULLER ON PATIENT, SKIN WARM AND DRY TO TOUCH. IV ACCESS INTACT AND PATENT ON RIGHT HAND, 18 GAUGE SALINE LOCK. PATIENT PRESENTING NO CHEST PAIN, ACUTE PAIN AT THIS TIME. SAFETY PRECAUTIONS IMPLEMENTED WITH BED LOCKED, BED IN LOWEST POSITION, BILATERAL SIDE RAILS UP, AND CALL WITHIN EASY REACH OF THE PATIENT. ISOLATION PRECAUTION IMPLEMENTED. WILL CONTINUE TO MONITOR PATIENT.
[2020-02-17] MEDS: ACETAMINOPHEN 325 MG TABLET PO PRN ×2 (15:36→20:11)
--- NOTE | 2020-02-17 15:36 | NUR ---
MILLING OPERATOR NOTES PATIENT HAD TEMPERATURE OF 101.1F, ADMINISTERED PRN TYLENOL ORDERED, AND PROVIDED COOLING MEASURES. WILL REASSESS AND CONTINUE TO MONITOR PATIENT.
[2020-02-17 16:00] VITALS: BP 158/75
[2020-02-17] MEDS ORDERED: REMDESIVIR (CHARGED) 200 MG, *LOADING DOSE 1 EA in IV NS 0.9% 210 ML IV ONE (16:00)
--- NOTE | 2020-02-17 17:40 | NUR ---
MEAT PUMPER NOTES PATIENT'S BLOOD SUGAR 168, INFORMED PATIENT THE NEED FOR INSULIN, 3 UNITS PER PROTOCOL OF SLIDING SCALE. PATIENT REFUSED EDUCATED THE RISKS AND BENEFITS, PATIENT KEPT REFUSING. WILL CONTINUE TO MONITOR PATIENT.
[2020-02-17] MEDS ORDERED: IPRATROPIUM/ALBUTEROL INHALER IH SCH (18:00)
[2020-02-17] MEDS: IPRATROPIUM/ALBUTEROL INHALER IH SCH (18:00)
--- NOTE | 2020-02-17 19:05 | NUR ---
BOBBIN SORTER NOTES PATIENT IN BED RESTING COMFORTABLY, ALERT AND ORIENTED X 4, URDU SPEAKING. ON NASAL CANNULA 4 LITERS, PATIENT STATES SOB UPON EXERTION WHEN SPEAKING MAINLY. DRY COUGH NOTED. ON PUMP MECHANIC SR 90'S. SKIN KEPT CLEAN, WARM AND DRY TO TOUCH. IV ACCESS INTACT AND PATENT ON RIGHT HAND, 18 GAUGE SALINE LOCK. PATIENT PRESENTING NO CHEST PAIN, ACUTE PAIN AT THIS TIME. SAFETY PRECAUTIONS IMPLEMENTED WITH BED LOCKED, BED IN LOWEST POSITION, BILATERAL SIDE RAILS UP, AND CALL WITHIN EASY REACH OF THE PATIENT. ISOLATION PRECAUTION IMPLEMENTED. WILL ENDORSE PLAN OF CARE TO UPCOMING RN.
--- NOTE | 2020-02-17 19:30 | NUR ---
RN NOTE RECEIVED PATIENT IN BED, AO X 4, BRAZILIAN SPEAKING BUT ABLE TO COMMUNICATE IN SIMPLE SWEDISH. PATIENT IN NO S/SX OF ACUTE DISTRESS AT THIS TIME. PATIENT'S BREATHING IS EVEN AND UNLABORED, PATIENT IS ON 4 L OF OXYGEN VIA NC, TOLERATING WELL, SATURATING AT 98%. PATIENT ON TELE MONITOR, READING SR, HR IS 96. NOTED IV SITE R HAND 18G, PATENT AND FLUSHING WELL, NO S/S OF INFECTION OR INFILTRATION. PATIENT IS AMBULATORY WITH ASSIST. SAFETY MEASURES IMPLEMENTED PER PROTOCOL. PATIENT BED ALARM IS ON. HEAD OF BED ELEVATED. BED IS LOCKED, IN LOWEST POSITION AND SIDE RAILS UP. CALL LIGHT WITHIN REACH OF THE PATIENT. WILL CONTINUE TO MONITOR AND REASSESS FOR ANY CHANGES.
[2020-02-17 20:00] VITALS: BP 137/73
[2020-02-18] VITALS: BP 134/81
[2020-02-18] MEDS: BLOOD SUGAR DIAGNOSTIC 1 EACH STRIP IN SCH ×4 (00:17→17:09)
[2020-02-18] MEDS: INSULIN REGULAR, HUMAN 100 UNIT/ML 3 ML VIAL SQ PRN ×2 (00:31→07:15)
[2020-02-18 04:00] VITALS: BP 140/80
[2020-02-18] MEDS: IPRATROPIUM/ALBUTEROL INHALER IH SCH ×4 (06:00→13:30)
--- NOTE | 2020-02-18 07:30 | NUR ---
RN OPENING NOTE PATIENT CURRENTLY IN BED SLEEPING, EASY TO WAKEN. ALERT/ORIENTED X4, ABLE TO MAKE NEEDS KNOWN. PATIENT CURRENTLY ON NC @ 4L OXYGEN THERAPY. OXYGEN SATURATION 92%, NO S/S OF DISTRESS AT THIS TIME, NO PAIN REPORTED. TELE MONITOR READING SHOWS SINUS RHYTHM. R HAND 18G IV INTACT AND PATENT, NO S/S OF INFECTION AT THIS TIME. ALL SAFETY MEASURES IN PLACE PER HOSPITAL POLICY. BED LOCKED IN LOWEST POSITION, CALL LIGHT WITHIN REACH. WILL CONTINUE TO MONITOR AND PROVIDE CARE.
[2020-02-18 08:00] VITALS: BP 133/82
[2020-02-18] MEDS: GEMFIBROZIL 600 MG TABLET PO SCH ×2 (08:17→16:30)
[2020-02-18] MEDS: METFORMIN 500 MG TABLET PO SCH ×2 (08:18→16:33)
[2020-02-18] MEDS: DEXAMETHASONE SOD PHOSPHATE 10 MG/ML VIAL IV SCH (08:19)
[2020-02-18] MEDS: CARVEDILOL 12.5 MG TABLET PO SCH ×2 (08:19→20:35)
[2020-02-18] MEDS: PANTOPRAZOLE 40 MG TABLET.DR PO SCH (08:19)
[2020-02-18] MEDS: ASPIRIN EC 81 MG TABLET.DR PO SCH (08:19)
[2020-02-18] MEDS: ENOXAPARIN SODIUM 40 MG/0.4 ML DISP.SYRIN SQ SCH (08:20)
[2020-02-18] MEDS: LISINOPRIL (20MG) 20 MG TABLET PO SCH (08:20)
[2020-02-18] MEDS: CEFTRIAXONE 1 G in IV D5W 50 ML IV SCH (08:22)
[2020-02-18 08:23] LABS: BASOPHILS % (AUTO) 0.2 % (0.0-2.0); EOSINOPHILS % (AUTO) 0.1 % (0.0-6.0); HEMATOCRIT 44 % (39-51); HEMOGLOBIN 14.8 g/dL (13.5-17.5); LYMPHOCYTES # (AUTO) 0.7 /CMM (0.8-4.8); LYMPHOCYTES % (AUTO) 12.6 % (20.0-44.0); MEAN CORPUSCULAR HGB CONC 33 g/dl (31.0-36.0); MEAN CORPUSCULAR VOLUME 78 fL (80-96); MONOCYTES # (AUTO) 0.4 /CMM (0.1-1.30); MONOCYTES % (AUTO) 7.4 % (2.0-12.0); NEUTROPHILS # (AUTO) 4.2 /CMM (1.8-8.9); NEUTROPHILS % (AUTO) 79.7 % (43.0-81.0); PLATELET COUNT (AUTO) 147 /CMM (150-450); RED BLOOD CELL COUNT(AUTO) 5.64 MIL/uL (4.5-6.0); WHITE BLOOD COUNT (AUTO) 5.3 K/uL (4.3-11.0)
[2020-02-18] MEDS: AZITHROMYCIN 250 MG in IV D5W 250 ML IV SCH (09:19)
[2020-02-18 10:03] LABS: BILIRUBIN,DIRECT 0.2 mg/dL (0.0-0.2); BILIRUBIN,TOTAL 0.4 mg/dL (0.2-1.0); CALCIUM, SERUM 8.8 mg/dL (8.5-10.1); CREATININE 1.1 mg/dL (0.6-1.3); POTASSIUM 4.9 mmol/L (3.5-5.1); TOTAL PROTEIN, SERUM 7.6 g/dL (6.4-8.2)
--- NOTE | 2020-02-18 11:48 | NUR ---
MED REFUSAL - INSULIN PATIENT ACCU-CHECK DONE, BS: 198 MG/DL. PATIENT INFORMED OF BS LEVEL. PATIENT REFUSED INSULIN, STATED HE DOES NOT WANT TO TAKE IT HE DOESN'T NORMALLY TAKE IT AT HOME. EDUCATION PROVIDED REGARDING MEDICATION AND BLOOD SUGAR PATIENT CONTINUED TO REFUSE.
[2020-02-18 12:00] VITALS: BP 105/68
[2020-02-18] MEDS: ALBUTEROL SULFATE INH 18 GM HFA.AER.AD IH SCH ×2 (15:34→17:09)
[2020-02-18] MEDS: IPRATROPIUM BROMIDE 14 GM INHALER (or 12.9 GM) IH SCH ×2 (15:34→17:08)
[2020-02-18 16:00] VITALS: BP 133/68
[2020-02-18] MEDS: REMDESIVIR (CHARGED) 100 MG in IV NS 0.9% 230 ML IV SCH (16:52)
--- NOTE | 2020-02-18 17:09 | NUR ---
MED REFUSAL - INSULIN PATIENT'S ACCUCHECK DONE. BS 197 MG/DL. PATIENT INFORMED OF HIGH BS LEVEL BUT PATIENT REFUSED INSULIN. EDUCATION PROVIDED AND OFFERED INSULIN AGAIN, PATIENT CONTINUED TO REFUSE
--- NOTE | 2020-02-18 19:15 | NUR ---
RN CLOSING NOTE PATIENT CURRENTLY IN BED RESTING. ALERT/ORIENTED X4, ABLE TO MAKE NEEDS KNOWN. PATIENT CURRENTLY ON NC @ 4L OXYGEN THERAPY. OXYGEN SATURATION 93%, NO S/S OF DISTRESS AT THIS TIME, NO PAIN REPORTED. TELE MONITOR READING SHOWS SINUS RHYTHM. R HAND 18G IV INTACT AND PATENT, NO S/S OF INFECTION AT THIS TIME. ALL SAFETY MEASURES IN PLACE PER HOSPITAL POLICY. BED LOCKED IN LOWEST POSITION, CALL LIGHT WITHIN REACH. WILL ENDORSE TO CCO & PRESIDENT NURSE FOR YOCASTA.
--- NOTE | 2020-02-18 19:40 | NUR ---
RN OPENING NOTE RECEIVED PATIENT IN BED RESTING ALERT ORIENTED X4 ABLE TO MAKE NEEDS KNOWN ON NONBREATHER MASK 15L/MIN OXYGEN O2:93% IV SITE IS ON RIGHT HAND INTACT,AMBULATORY WITH ASSIST R/O FOR COVID MONITORING FOR CONTACT/DROPLET ISOLATION,BED ALARM IS ON,BED IN LOW POSITION AND LOCKED,CALL LIGHT WITHIN REACH,CONTINUE TO MONITOR
[2020-02-18 20:00] VITALS: BP 127/74
[2020-02-19] VITALS: BP 124/76
[2020-02-19] MEDS: BLOOD SUGAR DIAGNOSTIC 1 EACH STRIP IN SCH ×5 (00:14→23:41)
[2020-02-19] MEDS: INSULIN REGULAR, HUMAN 100 UNIT/ML 3 ML VIAL SQ PRN ×2 (00:17→23:43)
[2020-02-19] MEDS: IPRATROPIUM BROMIDE 14 GM INHALER (or 12.9 GM) IH SCH ×4 (00:23→18:16)
[2020-02-19] MEDS: ALBUTEROL SULFATE INH 18 GM HFA.AER.AD IH SCH ×4 (00:24→18:16)
[2020-02-19 04:00] VITALS: BP 126/63
[2020-02-19 06:33] LABS: BASOPHILS % (AUTO) 0.3 % (0.0-2.0); EOSINOPHILS % (AUTO) 0.1 % (0.0-6.0); HEMATOCRIT 46 % (39-51); HEMOGLOBIN 15.2 g/dL (13.5-17.5); LYMPHOCYTES # (AUTO) 0.9 /CMM (0.8-4.8); LYMPHOCYTES % (AUTO) 14.6 % (20.0-44.0); MEAN CORPUSCULAR HGB CONC 33 g/dl (31.0-36.0); MEAN CORPUSCULAR VOLUME 79 fL (80-96); MONOCYTES # (AUTO) 0.5 /CMM (0.1-1.30); MONOCYTES % (AUTO) 8.4 % (2.0-12.0); NEUTROPHILS # (AUTO) 4.7 /CMM (1.8-8.9); NEUTROPHILS % (AUTO) 76.6 % (43.0-81.0); PLATELET COUNT (AUTO) 209 /CMM (150-450); WHITE BLOOD COUNT (AUTO) 6.1 K/uL (4.3-11.0)
[2020-02-19 06:52] LABS: ALBUMIN 2.9 g/dL (3.4-5.0); BILIRUBIN,DIRECT 0.2 mg/dL (0.0-0.2); BILIRUBIN,TOTAL 0.4 mg/dL (0.2-1.0); CALCIUM, SERUM 8.9 mg/dL (8.5-10.1); CREATININE 1.2 mg/dL (0.6-1.3); POTASSIUM 4.6 mmol/L (3.5-5.1); TOTAL PROTEIN, SERUM 7.6 g/dL (6.4-8.2)
--- NOTE | 2020-02-19 07:01 | NUR ---
RN CLOSING NOTE PATIENT REMAINS ON ALERT ORIENTED X4 VERBALLY RESPONSIVE ROMANIAN SPEAKER ONLY,ON 15L OXYGEN VIA NON REBREATHER MASK O2:98%,IV SITE IS ON RIGHT HAND INTACT PATENT ALL DUE MEDS GIVEN MD ORDERED,KEPT CLEAN AND DRY ALL THE TIME,KEPT COMFORTABLE ALL NEEDS MET,ENDORSE NEXT COMING SHIFT FOR CONTINUATION CARE.
[2020-02-19] MEDS: GEMFIBROZIL 600 MG TABLET PO SCH ×2 (07:30→16:28)
[2020-02-19 08:00] VITALS: BP 137/82
[2020-02-19] MEDS: PANTOPRAZOLE 40 MG TABLET.DR PO SCH (08:34)
[2020-02-19] MEDS: LISINOPRIL (20MG) 20 MG TABLET PO SCH (08:35)
[2020-02-19] MEDS: METFORMIN 500 MG TABLET PO SCH (08:35)
[2020-02-19] MEDS: CARVEDILOL 12.5 MG TABLET PO SCH ×2 (08:35→21:15)
[2020-02-19] MEDS: CEFTRIAXONE 1 G in IV D5W 50 ML IV SCH (08:35)
[2020-02-19] MEDS: ASPIRIN EC 81 MG TABLET.DR PO SCH (08:35)
[2020-02-19] MEDS: DEXAMETHASONE SOD PHOSPHATE 10 MG/ML VIAL IV SCH (08:35)
[2020-02-19] MEDS: ENOXAPARIN SODIUM 40 MG/0.4 ML DISP.SYRIN SQ SCH (08:37)
[2020-02-19] MEDS: AZITHROMYCIN 250 MG in IV D5W 250 ML IV SCH (10:26)
[2020-02-19 16:00] VITALS: BP 121/67
[2020-02-19] MEDS: REMDESIVIR (CHARGED) 100 MG in IV NS 0.9% 230 ML IV SCH (16:18)
--- NOTE | 2020-02-19 18:57 | NUR ---
RN CLOSING NOTE PATIENT CURRENTLY IN BED SLEEPING, EASY TO WAKEN. ALERT/ORIENTED X4, ABLE TO MAKE NEEDS KNOWN. PATIENT CURRENTLY ON NONREBREATHER @ 15L OXYGEN THERAPY. OXYGEN SATURATION 92%, NO S/S OF DISTRESS AT THIS TIME, NO PAIN REPORTED. TELE MONITOR READING SHOWS SINUS RHYTHM. L WRIST 18G IV INTACT AND PATENT, NO S/S OF INFECTION AT THIS TIME. ALL SAFETY MEASURES IN PLACE PER HOSPITAL POLICY. BED LOCKED IN LOWEST POSITION, CALL LIGHT WITHIN REACH. WILL CONTINUE TO MONITOR AND PROVIDE CARE5
[2020-02-19 20:00] VITALS: BP 138/94
[2020-02-20] MEDS: ALBUTEROL SULFATE INH 18 GM HFA.AER.AD IH SCH ×4 (00:31→18:12)
[2020-02-20] MEDS: IPRATROPIUM BROMIDE 14 GM INHALER (or 12.9 GM) IH SCH ×4 (00:31→18:12)
[2020-02-20 04:00] VITALS: BP 143/82
[2020-02-20] MEDS: BLOOD SUGAR DIAGNOSTIC 1 EACH STRIP IN SCH ×3 (05:05→18:28)
[2020-02-20] MEDS: INSULIN REGULAR, HUMAN 100 UNIT/ML 3 ML VIAL SQ PRN ×3 (05:08→18:44)
[2020-02-20] MEDS: PANTOPRAZOLE 40 MG TABLET.DR PO SCH (06:30)
[2020-02-20] MEDS: GEMFIBROZIL 600 MG TABLET PO SCH ×4 (06:30→16:48)
[2020-02-20 06:36] LABS: BASOPHILS % (AUTO) 0.1 % (0.0-2.0); EOSINOPHILS % (AUTO) 0.1 % (0.0-6.0); HEMATOCRIT 43 % (39-51); HEMOGLOBIN 14.6 g/dL (13.5-17.5); LYMPHOCYTES # (AUTO) 0.7 /CMM (0.8-4.8); LYMPHOCYTES % (AUTO) 9.1 % (20.0-44.0); MEAN CORPUSCULAR HGB CONC 34 g/dl (31.0-36.0); MEAN CORPUSCULAR VOLUME 78 fL (80-96); MONOCYTES # (AUTO) 0.6 /CMM (0.1-1.30); MONOCYTES % (AUTO) 7.7 % (2.0-12.0); NEUTROPHILS # (AUTO) 6.1 /CMM (1.8-8.9); PLATELET COUNT (AUTO) 223 /CMM (150-450); RED BLOOD CELL COUNT(AUTO) 5.53 MIL/uL (4.5-6.0); WHITE BLOOD COUNT (AUTO) 7.3 K/uL (4.3-11.0)
--- NOTE | 2020-02-20 06:36 | NUR ---
MS RN NOTE PT IN BED, SLEEPING BUT EASILY AROUSABLE .BREATHING EVEN AND UNLABORED IN NBR 15L. NO SOB OR ACUTE DISTRESS NOTED. DENIES ANY PAIN OR DISCOMFORT IV SITE PATENT AND INTACT. ALL NEEDS RENDERED. CALL LIGHT WITHIN REACH. BED IN LOWEST POSITION. WILL ENDORSE TO AM NURSE FOR CONTINUITY OF CARE
[2020-02-20 07:04] LABS: ALBUMIN 2.9 g/dL (3.4-5.0); BILIRUBIN,DIRECT 0.2 mg/dL (0.0-0.2); BILIRUBIN,TOTAL 0.4 mg/dL (0.2-1.0); CALCIUM, SERUM 8.8 mg/dL (8.5-10.1); POTASSIUM 4.5 mmol/L (3.5-5.1); TOTAL PROTEIN, SERUM 7.3 g/dL (6.4-8.2)
--- NOTE | 2020-02-20 07:45 | NUR ---
RN OPENING NOTE PATIENT IN BED AWAKE, ALERT/ORIENTED X4 GERMAN SPEAKING, PATIENT CURRENTLY ON NC @ 4L OXYGEN THERAPY. OXYGEN SATURATION 92%, NO S/S OF DISTRESS AT THIS TIME, NO PAIN REPORTED. TELE MONITOR READING SHOWS SINUS RHYTHM. R HAND 18G IV INTACT AND PATENT, NO S/S OF INFECTION AT THIS TIME. ALL SAFETY MEASURES IN PLACE PER HOSPITAL POLICY. BED LOCKED IN LOWEST POSITION, SIDE RAILS ARE UP X2.CALL LIGHT WITHIN REACH. WILL CONTINUE TO MONITOR
[2020-02-20] MEDS: ENOXAPARIN SODIUM 40 MG/0.4 ML DISP.SYRIN SQ SCH (09:55)
[2020-02-20] MEDS: DEXAMETHASONE SOD PHOSPHATE 10 MG/ML VIAL IV SCH (09:55)
[2020-02-20] MEDS: ASPIRIN EC 81 MG TABLET.DR PO SCH (09:56)
[2020-02-20] MEDS: AZITHROMYCIN 250 MG TABLET PO SCH (09:56)
[2020-02-20] MEDS: CARVEDILOL 12.5 MG TABLET PO SCH ×2 (09:56→22:16)
[2020-02-20] MEDS: LISINOPRIL (20MG) 20 MG TABLET PO SCH (09:56)
[2020-02-20] MEDS: CEFTRIAXONE 1 G in IV D5W 50 ML IV SCH (09:58)
--- NOTE | 2020-02-20 10:00 | NUR ---
RN NOTES DR EDWARDS ORDERED 60LPM 100% AND ABG IN 1 HOUR
[2020-02-20 11:51] LABS: ABG BASE EXCESS -1.9 mmol/L; ABG OXYGEN SATURATION 87.2 % (92.0-98.5); ABG PCO2 30.8 mmHg (35.0-45.0); ABG PO2 51.2 mmHg (75.0-100.0); COHb 0.6 % (0.5-1.5); MetHb 0.3 % (0.0-1.5); O2Hb 86.4 % (94.0-97.0); SITE, ABG Right Radial; VENT MODE, BG HFNC 60L 100% + NRB
[2020-02-20 12:00] VITALS: BP 129/77
--- NOTE | 2020-02-20 16:00 | NUR ---
RN NOTES PT REFUSED THE MED FOR CHOLESTEROL
--- NOTE | 2020-02-20 17:00 | NUR ---
RN NOTES JOSE F NOT HERE PHARMACY IS LATE
[2020-02-20] MEDS: REMDESIVIR (CHARGED) 100 MG in IV NS 0.9% 230 ML IV SCH (18:11)
--- NOTE | 2020-02-20 19:23 | NUR ---
RN CLOSINGNOTE PATIENT IN BED AWAKE, ALERT/ORIENTED X4 GIBRALTARIAN SPEAKING, PATIENT CURRENTLY ON NC @ 4L OXYGEN THERAPY. OXYGEN SATURATION 92%, NO S/S OF DISTRESS AT THIS TIME, NO PAIN REPORTED. TELE MONITOR READING SHOWS SINUS RHYTHM. R HAND 18G IV INTACT AND PATENT, NO S/S OF INFECTION AT THIS TIME. ALL SAFETY MEASURES IN PLACE PER HOSPITAL POLICY. BED LOCKED IN LOWEST POSITION, SIDE RAILS ARE UP X2.CALL LIGHT WITHIN REACH. WILL ENDORSE TO PM NURSE FOR YOCASTA
[2020-02-20 20:00] VITALS: BP 138/86
[2020-02-21] VITALS (8 sets, daily range): BP systolic 110–153; BP diastolic 58–94
[2020-02-21] MEDS: INSULIN REGULAR, HUMAN 100 UNIT/ML 3 ML VIAL SQ PRN ×4 (00:06→17:32)
[2020-02-21] MEDS: IPRATROPIUM BROMIDE 14 GM INHALER (or 12.9 GM) IH SCH ×4 (05:37→17:34)
[2020-02-21] MEDS: BLOOD SUGAR DIAGNOSTIC 1 EACH STRIP IN SCH ×4 (05:37→17:13)
[2020-02-21] MEDS: ALBUTEROL SULFATE INH 18 GM HFA.AER.AD IH SCH ×4 (05:37→17:34)
[2020-02-21 06:05] LABS: BASOPHILS % (AUTO) 0.1 % (0.0-2.0); EOSINOPHILS % (AUTO) 0.2 % (0.0-6.0); HEMATOCRIT 44 % (39-51); HEMOGLOBIN 14.9 g/dL (13.5-17.5); LYMPHOCYTES # (AUTO) 0.8 /CMM (0.8-4.8); LYMPHOCYTES % (AUTO) 9.2 % (20.0-44.0); MEAN CORPUSCULAR HGB CONC 34 g/dl (31.0-36.0); MEAN CORPUSCULAR VOLUME 79 fL (80-96); MONOCYTES # (AUTO) 0.4 /CMM (0.1-1.30); MONOCYTES % (AUTO) 4.6 % (2.0-12.0); NEUTROPHILS # (AUTO) 7.7 /CMM (1.8-8.9); NEUTROPHILS % (AUTO) 85.9 % (43.0-81.0); PLATELET COUNT (AUTO) 247 /CMM (150-450)
[2020-02-21 06:19] LABS: ALBUMIN 2.9 g/dL (3.4-5.0); BILIRUBIN,DIRECT 0.2 mg/dL (0.0-0.2); BILIRUBIN,TOTAL 0.4 mg/dL (0.2-1.0); CALCIUM, SERUM 8.9 mg/dL (8.5-10.1); CREATININE 1.1 mg/dL (0.6-1.3); POTASSIUM 4.4 mmol/L (3.5-5.1); TOTAL PROTEIN, SERUM 7.4 g/dL (6.4-8.2)
--- NOTE | 2020-02-21 07:30 | NUR ---
RN OPENING NOTE PATIENT IS IN BED AWAKE, ALERT/ORIENTED X4 SCOTTISH SPEAKING, PATIENT CURRENTLY ON NON BREATHER HIGH FLOW OXYGEN THERAPY. OXYGEN SATURATION 88%, NO S/S OF DISTRESS AT THIS TIME, NO PAIN REPORTED. TELE MONITOR READING SHOWS SINUS RHYTHM. R HAND 18G IV INTACT AND PATENT, NO S/S OF INFECTION AT THIS TIME. ALL SAFETY MEASURES IN PLACE PER HOSPITAL POLICY. BED LOCKED IN LOWEST POSITION, SIDE RAILS ARE UP X2.CALL LIGHT WITHIN REACH. WILL CONTUNIE TO MONITOR
[2020-02-21] MEDS: CARVEDILOL 12.5 MG TABLET PO SCH ×2 (09:28→21:08)
[2020-02-21] MEDS: ASPIRIN EC 81 MG TABLET.DR PO SCH (09:28)
[2020-02-21] MEDS: DEXAMETHASONE SOD PHOSPHATE 10 MG/ML VIAL IV SCH (09:29)
[2020-02-21] MEDS: LISINOPRIL (20MG) 20 MG TABLET PO SCH (09:29)
[2020-02-21] MEDS: ENOXAPARIN SODIUM 40 MG/0.4 ML DISP.SYRIN SQ SCH (09:30)
[2020-02-21] MEDS: PANTOPRAZOLE 40 MG TABLET.DR PO SCH (09:34)
[2020-02-21] MEDS: AZITHROMYCIN 250 MG TABLET PO SCH (09:34)
[2020-02-21] MEDS: CEFTRIAXONE 1 G in IV D5W 50 ML IV SCH (09:35)
--- NOTE | 2020-02-21 10:00 | NUR ---
RN NOTES ABG LAB WORK WAS DONE DOESN'T LOOK GOOD DR EDWARDS WOULD LIKE TO INTUBATE HOWEVER PT IS KEEP TAKING OFF THE MASK
--- NOTE | 2020-02-21 12:00 | NUR ---
RN NOTES EXPLAINING PT THE SEVERITY OF THE SITUATION AND IMPORTANCE OF KEEPING THE MASK ON . OXIMETER IS CONTINUOUSLY SHOWING 88-89%
[2020-02-21 12:14] LABS: ABG BASE EXCESS -4.1 mmol/L; ABG OXYGEN SATURATION 76.4 % (92.0-98.5); ABG PCO2 25.2 mmHg (35.0-45.0); ABG PH 7.464 (7.350-7.450); AaDO2 647.8 mmHg; COHb 0.7 % (0.5-1.5); MetHb 0.3 % (0.0-1.5); O2Hb 75.6 % (94.0-97.0); SITE, ABG Left Radial
--- NOTE | 2020-02-21 14:25 | NUR ---
RN NOTES GAVE REPORT TO MARY
--- NOTE | 2020-02-21 14:26 | NUR ---
RN NOTES MARY IS A SITTER AND A NURSE
--- NOTE | 2020-02-21 14:26 | NUR ---
receded report from Jewell, will cont to monitor
--- NOTE | 2020-02-21 14:30 | NUR ---
RT AT BED SITE, COLLECTING ABG
[2020-02-21 14:53] LABS: ABG BASE EXCESS -2.3 mmol/L; ABG OXYGEN SATURATION 87.5 % (92.0-98.5); ABG PCO2 27.2 mmHg (35.0-45.0); ABG PH 7.477 (7.350-7.450); ABG PO2 51.3 mmHg (75.0-100.0); AaDO2 634.5 mmHg; COHb 0.5 % (0.5-1.5); MetHb 0.3 % (0.0-1.5); O2Hb 86.8 % (94.0-97.0); SITE, ABG Left Radial; VENT MODE, BG High Flow 60L 100% + NRB
--- NOTE | 2020-02-21 15:29 | NUR ---
requested sitter from nursing sup per dr. brady,per nursing sup cannot provide sitter pt. theodora,will continue to monitor.
--- NOTE | 2020-02-21 16:18 | NUR ---
MONITORING PATIENT CLOSELY, OBSERVING Q15MIN, SPO2 IS 90-94%, TOLERATING HIGH FLOW MASK WELL
[2020-02-21] MEDS: REMDESIVIR (CHARGED) 100 MG in IV NS 0.9% 230 ML IV SCH (16:20)
[2020-02-21] MEDS: GEMFIBROZIL 600 MG TABLET PO SCH (16:38)
--- NOTE | 2020-02-21 17:30 | NUR ---
PATIENT PLACED IN CHAIR, TOLERATING MASK SETTINGS WELL, SPO2 IS 95%, EATING DINNER, FOLLOWING INSTRUCTION, ABLE TO MAINTAINS STABLE SPO2, WILL CONT TO MONITOR
--- NOTE | 2020-02-21 18:52 | NUR ---
RN CLOSING NOTE PATIENT SITTING, RELAXING, MAINTAINS ADEQUATE RESPIRATIONS, SPO2 IS 91%, ON HIGH FLOW AND NON REBREATHER MASK (BOTH ON MAX SETTINGS), MEDICATIONS GIVEN, COMFORT NEEDS ATTENDED, EDUCATION PROVIDED, SAFETY MEASURES IMPLEMENTED, WILL ENDORSE TO PM SHIFT RN FOR YOCASTA
--- NOTE | 2020-02-21 19:35 | NUR ---
RN NOTES RECEIVED PATIENT SITTING ON THE CHAIR, ALERT ORIENTED. ON HIGH FLOW O2 AT 55 L FIO2 100 % AND ON NON REBREATHER O2SAT 95 %. NO RESPIRATORY DISTRESS NOTED. ON TELE MONITOR SHOWS SR HR 85. DENIES PAIN. WITH R HAND G 18 AND JOSE MIDLINE. BOTH PATENT AND INTACT, FLUSHED ASEPTICALLY. NO INFILTRATION NOTED. ALL SAFETY MEASURES IMPLEMENTED PER PROTOCOL. CALL LIGHT WITHIN REACH. ISOLATION PRECAUTION FOR COVID OBSERVED. WILL CONTINUE TO MONITOR.
[2020-02-21] MEDS: INSULIN GLARGINE, 100 UNIT/ML CARTRIDGE SQ SCH (21:10)
[2020-02-22] VITALS (18 sets, daily range): BP systolic 103–136; BP diastolic 61–93
[2020-02-22] MEDS: BLOOD SUGAR DIAGNOSTIC 1 EACH STRIP IN SCH ×5 (00:39→21:21)
[2020-02-22] MEDS: INSULIN REGULAR, HUMAN 100 UNIT/ML 3 ML VIAL SQ PRN ×5 (01:00→21:16)
[2020-02-22] MEDS: ALBUTEROL SULFATE INH 18 GM HFA.AER.AD IH SCH ×4 (01:01→17:01)
[2020-02-22] MEDS: IPRATROPIUM BROMIDE 14 GM INHALER (or 12.9 GM) IH SCH ×4 (01:01→17:01)
--- NOTE | 2020-02-22 03:00 | NUR ---
PT IS COMPLAINING THAT HE CANNOT SLEEPING AND ASK FOR SLEEPING PILLS, THERES NO CURRENT ORDER FOR SLEEPING PILLS FOR THE PT, INFORMED DR. JULIA GAFFNEY ABOUT THIS BUT HE DO NOT GIVE SLEEPING PILLS D/T PT SOB STATUS
--- NOTE | 2020-02-22 04:30 | NUR ---
PT ON BED STILL AWAKE SPO2 92% VIA HIGH LOW AND NON REBREATHER NO DISTRESS NOTED WILL CONT TO MONITOR THE PT
[2020-02-22] MEDS: ACETAMINOPHEN 325 MG TABLET PO PRN (05:46)
[2020-02-22 07:24] LABS: CALCIUM, SERUM 9.1 mg/dL (8.5-10.1); POTASSIUM 4.2 mmol/L (3.5-5.1)
--- NOTE | 2020-02-22 07:30 | NUR ---
RN CLOSING NOTES PATIENT REMAINS IN BED. ABLE TO MAKE NEEDS KNOWN. CONTINUE ON NONREBREATHER AND HIGH FLOW O2 AT 55 L FIO2 100 %. SATING AT 91 %. NO RESPIRATORY DISTRESS NOTED. DENIES ANY PAIN. ON TELE MONITOR SHOWS SR HR 83. ON FREQUENT VISUAL CHECK. RIGHT HAND AND JOSE IV BOTH PATENT AND INTACT, FLUSHED. ALL SAFETY MEASURES WERE IMPLEMENTED PER PROTOCOL. SIDE RAILS UP X 2. BED LOCKED IN LOWEST POSITION. CALL LIGHT WITHIN REACH. ENDORSED TO NEXT SHIFT NURSE FOR YOCASTA.
--- NOTE | 2020-02-22 08:00 | NUR ---
ICU OVERFLOW RN NOTE PATIENT IN BED MANPREET ORIENTED X4, WITH LABORED RESPIRATION , ON HIGH DAVI AND NONREBREATHER MASK SATURATION 88%, ON TELE MONIOTR SR ABLE TO EAT BREAKFAST ENCOURAGE TO STAY ON PRONE POSITION BUT REFUSING, ER HAND AND RT UPPER ARM HLINTACT BED IN LOWEST AND LOCKED POSITION , CALL LIGHT WITHIN REACH , WILL MONITOR
[2020-02-22 08:05] LABS: BASOPHILS % (AUTO) 0.4 % (0.0-2.0); EOSINOPHILS % (AUTO) 0.6 % (0.0-6.0); HEMATOCRIT 45 % (39-51); LYMPHOCYTES # (AUTO) 0.4 /CMM (0.8-4.8); LYMPHOCYTES % (AUTO) 4.8 % (20.0-44.0); MEAN CORPUSCULAR HGB CONC 33 g/dl (31.0-36.0); MEAN CORPUSCULAR VOLUME 79 fL (80-96); MONOCYTES # (AUTO) 0.1 /CMM (0.1-1.30); MONOCYTES % (AUTO) 1.2 % (2.0-12.0); NEUTROPHILS # (AUTO) 8.2 /CMM (1.8-8.9); PLATELET COUNT (AUTO) 291 /CMM (150-450); RED BLOOD CELL COUNT(AUTO) 5.72 MIL/uL (4.5-6.0); WHITE BLOOD COUNT (AUTO) 8.8 K/uL (4.3-11.0)
[2020-02-22] MEDS: DEXAMETHASONE SOD PHOSPHATE 10 MG/ML VIAL IV SCH (08:51)
[2020-02-22] MEDS: PANTOPRAZOLE 40 MG TABLET.DR PO SCH (08:51)
[2020-02-22] MEDS: AZITHROMYCIN 250 MG TABLET PO SCH (08:51)
[2020-02-22] MEDS: CARVEDILOL 12.5 MG TABLET PO SCH ×2 (08:52→21:09)
[2020-02-22] MEDS: ASPIRIN EC 81 MG TABLET.DR PO SCH (08:52)
[2020-02-22] MEDS: LISINOPRIL (20MG) 20 MG TABLET PO SCH (08:53)
[2020-02-22] MEDS: CEFTRIAXONE 1 G in IV D5W 50 ML IV SCH (08:53)
[2020-02-22] MEDS: ENOXAPARIN SODIUM 40 MG/0.4 ML DISP.SYRIN SQ SCH (08:55)
[2020-02-22 09:05] LABS: BILIRUBIN,DIRECT 0.2 mg/dL (0.0-0.2); BILIRUBIN,TOTAL 0.7 mg/dL (0.2-1.0); TOTAL PROTEIN, SERUM 7.8 g/dL (6.4-8.2)
[2020-02-22] MEDS: GEMFIBROZIL 600 MG TABLET PO SCH ×2 (09:08→16:30)
--- NOTE | 2020-02-22 12:00 | NUR ---
[facility] OVER FLOW RN NOTE RESTING COMFORTABLY. STILL ON HIGH FLOE SATURATION 89 DR EDWARDS NOTIFIED
--- NOTE | 2020-02-22 16:00 | NUR ---
ICU OVER FLOW RN NOTE SITING UP ON BED ALL NEEDS ATTENDED LESS SOB STILL WITH HIGH FLOE O2 AND NONREBREATHER MASK
--- NOTE | 2020-02-22 19:32 | NUR ---
icu overflow rn nnote all needs attended not in distress
[2020-02-22] MEDS: INSULIN GLARGINE, 100 UNIT/ML CARTRIDGE SQ SCH (21:15)
[2020-02-23] VITALS (14 sets, daily range): BP systolic 100–146; BP diastolic 51–86
[2020-02-23] MEDS: IPRATROPIUM BROMIDE 14 GM INHALER (or 12.9 GM) IH SCH ×3 (00:15→23:31)
[2020-02-23] MEDS: ALBUTEROL SULFATE INH 18 GM HFA.AER.AD IH SCH ×3 (00:16→23:31)
[2020-02-23] MEDS: BLOOD SUGAR DIAGNOSTIC 1 EACH STRIP IN SCH ×4 (06:31→23:40)
[2020-02-23] MEDS: PANTOPRAZOLE 40 MG TABLET.DR PO SCH (06:31)
[2020-02-23] MEDS: INSULIN REGULAR, HUMAN 100 UNIT/ML 3 ML VIAL SQ PRN ×4 (06:36→23:35)
[2020-02-23] MEDS: GEMFIBROZIL 600 MG TABLET PO SCH ×2 (06:36→17:14)
--- NOTE | 2020-02-23 07:40 | NUR ---
TELE/RN OPENING NOTES RECEIVED PATIENT ON BED. AWAKE ALERT AND ORIENTED X4. PATIENT IN NO APPARENT RESPIRATORY DISTRESS NOTED. NO COMPLAINED OF PAIN AT THIS TIME. WILL CONTINUE TO MONITOR.
[2020-02-23 07:50] LABS: BASOPHILS % (AUTO) 0.2 % (0.0-2.0); EOSINOPHILS % (AUTO) 0.6 % (0.0-6.0); HEMATOCRIT 45 % (39-51); HEMOGLOBIN 14.9 g/dL (13.5-17.5); LYMPHOCYTES # (AUTO) 0.5 /CMM (0.8-4.8); LYMPHOCYTES % (AUTO) 4.9 % (20.0-44.0); MEAN CORPUSCULAR HGB CONC 33 g/dl (31.0-36.0); MEAN CORPUSCULAR VOLUME 79 fL (80-96); MONOCYTES # (AUTO) 0.2 /CMM (0.1-1.30); MONOCYTES % (AUTO) 2.1 % (2.0-12.0); NEUTROPHILS # (AUTO) 8.7 /CMM (1.8-8.9); NEUTROPHILS % (AUTO) 92.2 % (43.0-81.0); PLATELET COUNT (AUTO) 301 /CMM (150-450); RED BLOOD CELL COUNT(AUTO) 5.66 MIL/uL (4.5-6.0); WHITE BLOOD COUNT (AUTO) 9.5 K/uL (4.3-11.0)
[2020-02-23 08:23] LABS: CALCIUM, SERUM 9.4 mg/dL (8.5-10.1); CREATININE 1.2 mg/dL (0.6-1.3); MAGNESIUM 2.6 mg/dL (1.8-2.4); PHOSPHORUS 3.1 mg/dL (2.5-4.9); POTASSIUM 4.7 mmol/L (3.5-5.1)
[2020-02-23] MEDS: ENOXAPARIN SODIUM 40 MG/0.4 ML DISP.SYRIN SQ SCH (09:14)
[2020-02-23] MEDS: CARVEDILOL 12.5 MG TABLET PO SCH ×2 (09:16→23:33)
[2020-02-23] MEDS: ASPIRIN EC 81 MG TABLET.DR PO SCH (09:16)
[2020-02-23] MEDS: LISINOPRIL (20MG) 20 MG TABLET PO SCH (09:17)
[2020-02-23] MEDS: DEXAMETHASONE SOD PHOSPHATE 10 MG/ML VIAL IV SCH (09:17)
[2020-02-23] MEDS: CEFTRIAXONE 1 G in IV D5W 50 ML IV SCH (09:19)
--- NOTE | 2020-02-23 19:00 | NUR ---
TELE/RN CLOSING NOTES PATIENT IS ON BED AWAKE ALERT AND ORIENTED X4. PATIENT IN NO APPARENT RESPIRATORY DISTRESS NOTED. NO COMPLAINED OF PAIN NOTED AT THIS TIME. SEEN AND EXAMINED BY MD WITH ORDERS MADE AND CARRIED OUT. ALL DUE MEDICATION WAS GIVE. ON TELE MONITOR READING SINUS RHYTHM 84 BPM. IV ACCESS AT RIGHT HAND # 18G AND RIGHT UPPER ARM MIDLINE PATENT AND INTACT. SAFETY PRECAUTIONS WAS IN PLACED. SIDE RAILS UP X 2. CALL LIGHT WITHIN REACH. WILL ENDORSED TO RELATIONSHIP SPECIALIST FOR YOCASTA.
--- NOTE | 2020-02-23 20:22 | NUR ---
MARGIE/RN DURING INITIAL ROUNDING, PATIENT WAS SITTING AT EDGE OF BED, ON HIGH FLOW O2 AND NON REBREATHER MASK AT 15LPM O2, PATIENT WAS COMFORTABLE, NO C/O PAIN, NO DISTRESS NOTED, CALL LIGHT IN REACH, FALL PRECAUTIONS PER PROTOCOL, WILL MONITOR.
[2020-02-23] MEDS: INSULIN GLARGINE, 100 UNIT/ML CARTRIDGE SQ SCH (23:34)
[2020-02-24] VITALS: BP 127/64
[2020-02-24 04:00] VITALS: BP 110/74
[2020-02-24] MEDS: INSULIN REGULAR, HUMAN 100 UNIT/ML 3 ML VIAL SQ PRN ×4 (06:13→23:53)
[2020-02-24] MEDS: BLOOD SUGAR DIAGNOSTIC 1 EACH STRIP IN SCH ×4 (06:14→23:51)
[2020-02-24] MEDS: ALBUTEROL SULFATE INH 18 GM HFA.AER.AD IH SCH ×3 (06:15→17:40)
[2020-02-24] MEDS: IPRATROPIUM BROMIDE 14 GM INHALER (or 12.9 GM) IH SCH ×3 (06:15→17:40)
--- NOTE | 2020-02-24 06:28 | NUR ---
MARGIE/RN PATIENT IS AWAKE, SITTING AT EDGE OF BED, COMFORTABLE, NO DISTRESS NOTED, STILL ON HIGH FLOW OXYGEN AND NON REBREATHER MASK, ALL NEEDS ATTENDED AT THIS TIME, WILL CONTINUE TO MONITOR.
--- NOTE | 2020-02-24 07:41 | NUR ---
CREATIVE SERVICES MANAGER OPENING NOTES PATIENT ASLEEP. ON OXYGEN; HIGH-FLOW PLUS NON-REBREATHER AT 15 LPM; NO DISTRESS AT THIS TIME. NO S/S OF PAIN SUCH FACIAL GRIMACING, MOANING OR GUARDING NOTED. JOSE MIDLINE AND R HAND G #18 IV ACCESS PRESENT AND INTACT. SAFETY PRECAUTIONS IN PLACE; BED IN LOW POSITION AND LOCKED, HOB ELEVATED, RAILS UP X2, CALL LIGHT WITHIN REACH. WILL CONTINUE TO MONITOR PATIENT.
[2020-02-24 08:00] VITALS: BP 104/71
[2020-02-24] MEDS: LISINOPRIL (20MG) 20 MG TABLET PO SCH (09:00)
[2020-02-24] MEDS: CARVEDILOL 12.5 MG TABLET PO SCH ×2 (09:00→22:06)
[2020-02-24] MEDS: ASPIRIN EC 81 MG TABLET.DR PO SCH (09:40)
[2020-02-24] MEDS: PANTOPRAZOLE 40 MG TABLET.DR PO SCH (09:46)
[2020-02-24] MEDS: GEMFIBROZIL 600 MG TABLET PO SCH ×2 (09:46→15:31)
[2020-02-24] MEDS: DEXAMETHASONE SOD PHOSPHATE 10 MG/ML VIAL IV SCH (09:47)
[2020-02-24] MEDS: ENOXAPARIN SODIUM 40 MG/0.4 ML DISP.SYRIN SQ SCH (09:49)
[2020-02-24 12:23] VITALS: BP 134/79
[2020-02-24 16:07] VITALS: BP 131/74
--- NOTE | 2020-02-24 18:53 | NUR ---
CORRECTIVE THERAPIST CLOSING NOTES PATIENT AWAKE, A/O X4. ON OXYGEN; HIGH-FLOW PLUS NON-REBREATHER AT 15 LPM; NO DISTRESS DURING SHIFT. NO COMPLAINS OF PAIN DURING THE DAY. JOSE MIDLINE AND R HAND G #18 IV ACCESS PRESENT AND INTACT. ALL NEEDS ATTENDED THROUGHOUT THE DAY. SAFETY PRECAUTIONS IN PLACE; BED IN LOW POSITION AND LOCKED, HOB ELEVATED, RAILS UP X2, CALL LIGHT WITHIN REACH. WILL ENDORSE TO DOUBLE NEEDLE STITCHER NURSE.
--- NOTE | 2020-02-24 19:30 | NUR ---
ASSURANCE SOURCING MANAGER OPENING NOTES RECEIVED PT AWAKE IN BED AT THIS TIME. PT AOX-3. PT ABLE TO VERBALIZE NEEDS, NO S/S OF ANY ACUTE DISTRESS NOTED. NO C/O PAIN AT THIS TIME. RESPIRATIONS ARE EVEN AND UNLABORED. PT NOTED ON HIGH FLOW 60L FIO2 100% AND 15LPM NON REBREATHER SPO2 91%. TELE MONITOR READS SINUS RHYTHM 60-70, JOSE MIDLINE NOTED, INTACT, PATENT AND FLUSHING WELL. DROPLET ISOLATION MAINTAINED FOR COVID [address] AND MAINTAINED AT ALL TIMES. BED IN LOWEST LOCKED POSITION, HOB ELEVATED, SIDE RAILS UP X 2, CALL LIGHT AND TABLE WITHIN REACH. WILL CONTINUE TO MONITOR
[2020-02-24 20:00] VITALS: BP 126/75
[2020-02-24] MEDS: INSULIN GLARGINE, 100 UNIT/ML CARTRIDGE SQ SCH (22:10)
[2020-02-25] VITALS (22 sets, daily range): BP systolic 102–146; BP diastolic 65–86
[2020-02-25] MEDS: IPRATROPIUM BROMIDE 14 GM INHALER (or 12.9 GM) IH SCH ×5 (00:10→23:14)
[2020-02-25] MEDS: ALBUTEROL SULFATE INH 18 GM HFA.AER.AD IH SCH ×5 (00:11→23:14)
[2020-02-25] MEDS: BLOOD SUGAR DIAGNOSTIC 1 EACH STRIP IN SCH ×4 (05:51→23:14)
[2020-02-25] MEDS: INSULIN REGULAR, HUMAN 100 UNIT/ML 3 ML VIAL SQ PRN ×4 (05:54→23:00)
[2020-02-25] MEDS: GEMFIBROZIL 600 MG TABLET PO SCH ×3 (07:30→16:30)
[2020-02-25] MEDS: PANTOPRAZOLE 40 MG TABLET.DR PO SCH (07:33)
[2020-02-25] MEDS: DEXAMETHASONE SOD PHOSPHATE 10 MG/ML VIAL IV SCH (08:33)
[2020-02-25] MEDS: CARVEDILOL 12.5 MG TABLET PO SCH ×2 (08:34→22:51)
[2020-02-25] MEDS: ASPIRIN EC 81 MG TABLET.DR PO SCH (08:34)
[2020-02-25] MEDS: ENOXAPARIN SODIUM 40 MG/0.4 ML DISP.SYRIN SQ SCH (08:36)
--- NOTE | 2020-02-25 09:30 | NUR ---
ICU OVERFLOW RN NOTES Patient offered his am medication Lopid but refused. Offered x 3.
--- NOTE | 2020-02-25 18:54 | NUR ---
RN CLOSING NOTES PATIENT REMAINS IN BED, TOLERATING O2 THERAPY WELL, SPO2 IS 88-91, PROVIDED COMFORT NEEDS, REPOSITIONING, EDUCATION PROVIDED, ALL MEDICATIONS GIVEN, SAFETY MEASURES IN PLACE,BED IS LOCKED, HOB ELEVATED, WILL ENDORSE TO PM SHIFT RN FOR YOCASTA
--- NOTE | 2020-02-25 19:20 | NUR ---
RN OPENING NOTES RECEIVED PT IN BED. A/O X4. PRIMARILY MALTESE SPEAKING. UNDERSTANDS MALIAN, ABLE TO MAKE NEEDS KNOWN. ON HIGH FLOW WITH NON REBREATHER MASK AT 60L FIO2 100% SATURATING AT 91%, PT BREATHING IS LABORED AND EVEN. ENCOURAGED PT TO TAKE DEEP BREATHS. IV SITES FLUSHED. PT DENIES PAIN. PT USES URINAL AT BEDSIDE. SAFETY MEASURES IN PLACE. HOB ELEVATED TOLERATED. SIDE RAILS UP X2. BED LOCKED IN LOWEST POSITION. CALL LIGHT WITHIN REACH, WILL CONTINUE TO MONITOR FOR CHANGES.
[2020-02-25] MEDS: INSULIN GLARGINE, 100 UNIT/ML CARTRIDGE SQ SCH (23:00)
[2020-02-26] VITALS (24 sets, daily range): BP systolic 99–147; BP diastolic 59–100
--- NOTE | 2020-02-26 00:30 | NUR ---
CHANGED PULSE OX FOR PT FROM FINGER TO EAR, SATURATION IS AT 91% AT THIS TIME. PT DENIES PAIN AT THIS TIME, EDUCATED ON DEEP SLOW BREATHS, PT RR IS 28 AT THIS TIME, NEEDS ATTENDED. PT VERBALIZES DESIRE TO REST.
--- NOTE | 2020-02-26 00:30 | NUR ---
UNABLE TO SCAN MEDICATIONS, INHALERS AT BEDSIDE.
[2020-02-26 06:40] LABS: CALCIUM, SERUM 9.1 mg/dL (8.5-10.1); CREATININE 0.9 mg/dL (0.6-1.3); POTASSIUM 4.5 mmol/L (3.5-5.1)
[2020-02-26] MEDS: IPRATROPIUM BROMIDE 14 GM INHALER (or 12.9 GM) IH SCH ×4 (06:53→22:18)
[2020-02-26] MEDS: ALBUTEROL SULFATE INH 18 GM HFA.AER.AD IH SCH ×4 (06:53→22:18)
[2020-02-26] MEDS: BLOOD SUGAR DIAGNOSTIC 1 EACH STRIP IN SCH ×4 (06:53→22:25)
[2020-02-26] MEDS: INSULIN REGULAR, HUMAN 100 UNIT/ML 3 ML VIAL SQ PRN ×4 (07:00→22:25)
[2020-02-26] MEDS: GEMFIBROZIL 600 MG TABLET PO SCH ×2 (07:30→16:30)
--- NOTE | 2020-02-26 07:50 | NUR ---
RN CLOSING NOTES NO SIGNIFICANT CHANGES NOTED. PT RESTED WELL ON MY SHIFT. O2 SATURATION IS 95% AT THIS TIME. BREATHING IS SOMEWHAT LABORED. PT TENDS TO DESAT WHEN REMOVING NON REBREATHER MASK TO 88-89%. SATURATION >90% RETURNS AFTER MASK IS RETURNED. PT STILL ON TELE MONITORING, NSR HEART RATE IN 70S. PT DENIES PAIN. AFEBRILE. AND NEEDS ATTENDED. SAFETY MEASURES IN PLACE. HOB ELEVATED. SIDE RAILS UP X2. BED LOCKED IN LOWEST POSITION. ENDORSED TO AM NURSE FOR YOCASTA Addendum: 02/26/20 at 0754 by ELENA HUTCHINSON RN PT STILL WITH NON REBREATHER MASK 15L AND HIGH FLOW 100% 60L
--- NOTE | 2020-02-26 08:04 | NUR ---
PT RECEIVED IN BED, ALERT AND ORIENTED X 4 MOSTLY PORTUGUESE SPEAKING. PT APPEARS COMFORTABLE, NO RESPIRATORY DISTRESS OR SOB. PT NRM 15L/HIGH-FLOW 60L, 100%. O2 SAT CURRENTLY 87%. PT ON MONITOR SHOWING NSR 70-80. PT CONDOM CATH OUTPUT 600 ML PREVIOUS SHIFT. PT HAS JOSE MIDLINE AND LEFT HAND SALINE LOCK, NO FLUIDS AT THIS TIME. PT ON CCHO DIET. BED IN LOCKED LOWEST POSITION, CALL LIGHT WITHIN REACH, ALL SAFETY MEASURES IN PLACE. WILL CONTINUE TO MONITOR CLOSELY Addendum: 02/26/20 at 1452 by AMIE LIU RN MISTAKE: NO CONDOM CATH, USES URINAL
[2020-02-26] MEDS: PANTOPRAZOLE 40 MG TABLET.DR PO SCH (08:37)
[2020-02-26] MEDS: ASPIRIN EC 81 MG TABLET.DR PO SCH (08:37)
[2020-02-26] MEDS: CARVEDILOL 12.5 MG TABLET PO SCH ×2 (08:38→22:16)
[2020-02-26] MEDS: DEXAMETHASONE SOD PHOSPHATE 10 MG/ML VIAL IV SCH (08:38)
[2020-02-26] MEDS: ENOXAPARIN SODIUM 40 MG/0.4 ML DISP.SYRIN SQ SCH (08:39)
[2020-02-26 09:05] LABS: C-REACTIVE PROTEIN 8.4 mg/dL (0.0-0.9)
--- NOTE | 2020-02-26 17:00 | NUR ---
PT REFUSED BOTH DOSES OF LOPID THIS SHIFT, STATES HE DOES NOT WANT TO TAKE CHOLESTEROL MEDICATION BECAUSE IT DOES BAD THINGS TO HIS BODY
--- NOTE | 2020-02-26 19:00 | NUR ---
PT REMAINS IN BED, ALERT AND ORIENTED X 4, PRIMARILY BELARUSIAN SPEAKING. PT IS ON 15L NON-REBREATHER AND 60L/100% FIO2 HIGH FLOW, O2 SATS TODAY 91-96%. PT BREATHING SLIGHTLY SOB, BUT NO RESPIRATORY DISTRESS. PT ON MONITOR SHOWING SR 70-90. PT HAD NO BM TODAY, 750 ML DARK YELLOW URINE U/O VIA URINAL. PT LEFT HAND #20 SL, JOSE MIDLINE 18 SL. NO SIGNS OF INFECTION OR INFILTRATION. PT IN BED LOCKED LOWEST POSITION, CALL LIGHT WITHIN REACH, ALL SAFETY MEASURES IN PLACE. REPORT GIVEN TO ONCOMING RN FOR YOCASTA.
[2020-02-26] MEDS: INSULIN GLARGINE, 100 UNIT/ML CARTRIDGE SQ SCH (22:22)
[2020-02-27] VITALS (24 sets, daily range): BP systolic 100–148; BP diastolic 61–93
--- NOTE | 2020-02-27 03:57 | NUR ---
RN notes In bed, lying prone with no distress noted. On high flow at 60% tolerating well. Alert and oriented x 4. British speaking but can speak and understand turkish. No complaint of pain or discomfort. Vital signs wnl. No significant change of condition. Kept clean and dry. Will continue to monitor and will endorse to next shift for continuity of care.
[2020-02-27] MEDS: INSULIN REGULAR, HUMAN 100 UNIT/ML 3 ML VIAL SQ PRN ×4 (05:10→22:16)
[2020-02-27] MEDS: BLOOD SUGAR DIAGNOSTIC 1 EACH STRIP IN SCH ×4 (05:11→22:14)
[2020-02-27] MEDS: IPRATROPIUM BROMIDE 14 GM INHALER (or 12.9 GM) IH SCH ×4 (05:16→23:44)
[2020-02-27] MEDS: ALBUTEROL SULFATE INH 18 GM HFA.AER.AD IH SCH ×4 (05:16→23:44)
[2020-02-27 06:00] LABS: CALCIUM, SERUM 9.2 mg/dL (8.5-10.1); POTASSIUM 4.6 mmol/L (3.5-5.1)
[2020-02-27 06:06] LABS: BASOPHILS % (AUTO) 0.3 % (0.0-2.0); HEMATOCRIT 47 % (39-51); HEMOGLOBIN 15.6 g/dL (13.5-17.5); LYMPHOCYTES # (AUTO) 0.6 /CMM (0.8-4.8); MEAN CORPUSCULAR HGB CONC 33 g/dl (31.0-36.0); MEAN CORPUSCULAR VOLUME 79 fL (80-96); MONOCYTES # (AUTO) 0.3 /CMM (0.1-1.30); MONOCYTES % (AUTO) 2.5 % (2.0-12.0); NEUTROPHILS # (AUTO) 10.4 /CMM (1.8-8.9); NEUTROPHILS % (AUTO) 91.2 % (43.0-81.0); PLATELET COUNT (AUTO) 196 /CMM (150-450); RED BLOOD CELL COUNT(AUTO) 5.94 MIL/uL (4.5-6.0); WHITE BLOOD COUNT (AUTO) 11.4 K/uL (4.3-11.0)
[2020-02-27] MEDS: GEMFIBROZIL 600 MG TABLET PO SCH ×2 (07:30→16:28)
--- NOTE | 2020-02-27 07:30 | NUR ---
ICU OVERFLOW RN OPENING NOTES Patient received in a sitting position. Patient is alert and oriented x4. Patient not in any distress. On via non rebreather mask at 15 liters and high flow with saturation reading of 90%. Patient noted with two IV lines. Peripheral Iv line to left hand and midline to right upper arm noted to be patent and free of s/s of infection. Patient will be monitored. Bed in locked and lowest position. Educated to use call light. Call light with in reach
[2020-02-27] MEDS: PANTOPRAZOLE 40 MG TABLET.DR PO SCH (07:40)
[2020-02-27] MEDS: DEXAMETHASONE SOD PHOSPHATE 10 MG/ML VIAL IV SCH (08:46)
[2020-02-27] MEDS: ASPIRIN EC 81 MG TABLET.DR PO SCH (08:46)
[2020-02-27] MEDS: CARVEDILOL 12.5 MG TABLET PO SCH ×2 (08:47→22:19)
[2020-02-27] MEDS: ENOXAPARIN SODIUM 40 MG/0.4 ML DISP.SYRIN SQ SCH (08:51)
--- NOTE | 2020-02-27 09:30 | NUR ---
ICU OVERFLOW RN NOTES Patient refused his Lopid for 730 am medications.
--- NOTE | 2020-02-27 13:00 | NUR ---
ICU OVERFLOW RN NOTES Patient noted with poor meal intake, informed Dr Gómez Alvarez. Patient educated regarding importance of meal intake.
--- NOTE | 2020-02-27 18:23 | NUR ---
ICU OVERFLOW RN CLOSING NOTES Patient is alert and oriented. Patient is on 02 via high flow and also on non rebreather mask with 02 saturations mostly between 90s to 92 % but noted with desaturation into 70s and 80s upon exertion. Patient's head of the bed kept elevated. Fluids encouarged as filiberto. Bed in locked and lowest position. Call light with in reach.Will endorse to next shift for YOCASTA.
[2020-02-27] MEDS: INSULIN GLARGINE, 100 UNIT/ML CARTRIDGE SQ SCH (22:15)
[2020-02-28] VITALS (19 sets, daily range): BP systolic 89–145; BP diastolic 20–97
--- NOTE | 2020-02-28 04:40 | NUR ---
ICU-OF/WOOD FENCE ERECTOR SPOKE WITH SAVANNAH CONROYP REGARDING PTS STATUS NEW ORDER FOR STAT ABG AND MORNING LABS RECEIVED. WILL CONTINUE TO MONITOR CLOSELY.
[2020-02-28 05:08] LABS: ABG BASE EXCESS -1.4 mmol/L; ABG OXYGEN SATURATION 70.7 % (92.0-98.5); ABG PCO2 28.2 mmHg (35.0-45.0); ABG PH 7.477 (7.350-7.450); ABG PO2 35.6 mmHg (75.0-100.0); AaDO2 649.2 mmHg; MetHb 0.1 % (0.0-1.5); O2Hb 69.9 % (94.0-97.0); SITE, ABG Right Brachial; VENT MODE, BG HFNC 60L 100% +NRB
--- NOTE | 2020-02-28 05:25 | NUR ---
ICU-OF/COAT MAKER ABG RESULTS SHARED WITH SAVANNAH LOONEY ACNP LASIX 20MG IVP x1 NOW.
[2020-02-28] MEDS ORDERED: FUROSEMIDE 20 MG/2 ML VIAL IV ONE (05:30)
--- NOTE | 2020-02-28 05:30 | NUR ---
ICU-OF/AIR BRAKE MAN SAVANNAH CONROYP SPOKE WITH PT AT BEDSIDE ABOUT INTUBATION. PT AGREED. PT TO BE INTUBATED AT CHANGE OF SHIFT. SAVANNAH CONROYP NOTIFIED CERTIFIED DRUG COUNSELOR AND MADE ARRANGEMENTS.
[2020-02-28] MEDS: ALBUTEROL SULFATE INH 18 GM HFA.AER.AD IH SCH ×4 (06:00→23:02)
[2020-02-28] MEDS: IPRATROPIUM BROMIDE 14 GM INHALER (or 12.9 GM) IH SCH ×4 (06:00→23:01)
[2020-02-28 06:12] LABS: BASOPHILS # (AUTO) 0.2 /CMM (0.0-0.2); BASOPHILS % (AUTO) 0.8 % (0.0-2.0); EOSINOPHILS % (AUTO) 0.4 % (0.0-6.0); HEMATOCRIT 50 % (39-51); HEMOGLOBIN 16.7 g/dL (13.5-17.5); LYMPHOCYTES # (AUTO) 0.8 /CMM (0.8-4.8); LYMPHOCYTES % (AUTO) 3.6 % (20.0-44.0); MEAN CORPUSCULAR HGB CONC 33 g/dl (31.0-36.0); MEAN CORPUSCULAR VOLUME 79 fL (80-96); MONOCYTES # (AUTO) 0.5 /CMM (0.1-1.30); MONOCYTES % (AUTO) 2.3 % (2.0-12.0); NEUTROPHILS # (AUTO) 20.8 /CMM (1.8-8.9); NEUTROPHILS % (AUTO) 92.9 % (43.0-81.0); PLATELET COUNT (AUTO) 213 /CMM (150-450); RED BLOOD CELL COUNT(AUTO) 6.41 MIL/uL (4.5-6.0); WHITE BLOOD COUNT (AUTO) 22.4 K/uL (4.3-11.0)
[2020-02-28 06:22] LABS: ALBUMIN 2.4 g/dL (3.4-5.0); BILIRUBIN,TOTAL 0.7 mg/dL (0.2-1.0); CALCIUM, SERUM 9.5 mg/dL (8.5-10.1); CREATININE 1.1 mg/dL (0.6-1.3); POTASSIUM 4.9 mmol/L (3.5-5.1); TOTAL PROTEIN, SERUM 7.5 g/dL (6.4-8.2)
[2020-02-28] MEDS: BLOOD SUGAR DIAGNOSTIC 1 EACH STRIP IN SCH ×4 (06:40→22:27)
[2020-02-28] MEDS: INSULIN REGULAR, HUMAN 100 UNIT/ML 3 ML VIAL SQ PRN ×4 (06:40→22:37)
--- NOTE | 2020-02-28 06:42 | NUR ---
KITCHEN HELP HANDYMAN [place] AT [id number]. PT AGREED FOR COVERAGE OF 4UNITS
[2020-02-28] MEDS: PANTOPRAZOLE 40 MG TABLET.DR PO SCH (07:30)
[2020-02-28] MEDS: GEMFIBROZIL 600 MG TABLET PO SCH ×2 (07:30→16:30)
--- NOTE | 2020-02-28 07:30 | NUR ---
ICU-OF/PACKER INSULATION REPORT TO AMIE REDD FOR CONT OF CARE.
--- NOTE | 2020-02-28 08:00 | NUR ---
@ 0800 pt. intubated by JENNY HUDSON due to increased work of breathing and low saturation. pt. is intubated with 7.5 ET tube secured @ 26 cm [id number]-lips. CO2 detector changed to yellow color with breath sounds clear bilateral and symmetrical chest rise on post intubation. vent settings below as order: AC 30 VT 500ML FIO2 100% PEEP +10 VENT IS PLUGGED INTO RED OUTLET WITH ALARMS ON AND FUNCTIONING. AMBUBAG @ BEDSIDE. Addendum: 02/28/20 at 0848 by EAN CARABALLO RT Amended: Links added.
--- NOTE | 2020-02-28 08:00 | NUR ---
PT RECEIVED IN BED ON HIGH FLOW AND NON-REBREATHER MASK, O2 SAT IN 60-70S. PT INTUBATED AT BEDSIDE, ON PRESCRIBED VENT SETTINGS ETT 7.5/26 CM, AC 30, TV 500, FIO2 100%, PEEP 10. PATIENT CURRENTLY SEDATED, AT BASELINE A/O X 4. PT ON MONITOR SHOWING SR/ST. PT BEDREST, SKIN INTACT. BED IN LOCKED LOWEST POSITION ,CALL LIGHT WITHIN REACH, ALL SAFETY MEASURES IN PLACE. WILL CONTINUE TO MONITOR CLOSELY
[2020-02-28] MEDS ORDERED: PROPOFOL 100 ML IV PRN (08:30)
[2020-02-28] MEDS ORDERED: LORAZEPAM INJ 2 MG/ML VIAL IV ONE (08:30)
[2020-02-28] MEDS: ASPIRIN EC 81 MG TABLET.DR PO SCH (09:00)
[2020-02-28] MEDS ORDERED: CEFEPIME 1 GM in IV D5W 50 ML IV SCH (09:00)
[2020-02-28] MEDS: CARVEDILOL 12.5 MG TABLET PO SCH ×2 (09:00→21:00)
[2020-02-28] MEDS: PROPOFOL 100 ML IV PRN ×6 (09:55→23:45)
[2020-02-28] MEDS: NOREPINEPHRINE 8 MG in IV NS 0.9% 242 ML IV PRN ×2 (09:56→21:50)
--- NOTE | 2020-02-28 10:01 | NUR ---
bridges fr 16 inserted connected to bedside bag with initial 200ml yellow colored urine.
[2020-02-28 10:03] LABS: ABG OXYGEN SATURATION 71.7 % (92.0-98.5); ABG PH 7.277 (7.350-7.450); ABG PO2 44.4 mmHg (75.0-100.0); AaDO2 625.6 mmHg; COHb 1.1 % (0.5-1.5); MetHb 0.3 % (0.0-1.5); O2Hb 70.7 % (94.0-97.0); PEEP,BG 10 cm H2O; SITE, ABG Right Brachial; VT, ABG 500 mL
--- NOTE | 2020-02-28 10:14 | NUR ---
vent changes below per dr. brady: PEEP +12 Addendum: 02/28/20 at 1014 by EAN CARABALLO RT Amended: Links added.
--- NOTE | 2020-02-28 12:00 | NUR ---
ALL PO MEDS NON-ADMIN, UNABLE TO INSERT NG/OG TUBE X3 ATTEMPTS. YARD SUPERVISOR FENG AWARE. INHALERS NON-ADMIN, UNABLE TO DELIVER SPRAY DUE TO PATIENT NOW ON VENT
[2020-02-28] MEDS: ENOXAPARIN SODIUM 40 MG/0.4 ML DISP.SYRIN SQ SCH (12:30)
[2020-02-28] MEDS: CEFEPIME 2 GM in IV D5W 100 ML IV SCH ×2 (12:31→17:59)
[2020-02-28] MEDS: VANCOMYCIN 1.25 GM in IV D5W 250 ML IV SCH ×2 (13:40→22:27)
--- NOTE | 2020-02-28 18:49 | NUR ---
PT REMAINS ON PRESCRIBED VENT/TRACH SETTINGS: 7.5, AC 30, TV 500, FIO2 100%, PEEP 12. PT O2 SAT GRADUALLY IMPROVED THIS SHIFT FROM 70s TO NOW 90s ON VENT. PT ON MONITOR SHOWING SR/ST 80-100. NO BM, BERMUDEZ DRAINING YELLOW CLEAR URINE 300 ML. PT BEDREST, SKIN INTACT. PT NPO AT THIS TIME. ENDORSED TO ONCOMING RN TO TRY TO INSERT NG OR OGT. PT HAS JOSE MIDLINE AND FARIDEH MIDLINE. NO SIGNS OF INFECTION OR INFILTRATION. BED IN LOCKED LOWEST POSITION, CALL LIGHT WITHIN REACH, ALL SAFETY MEASURES IN PLACE, REPORT GIVEN TO YOHANNES FOR YOCASTA
--- NOTE | 2020-02-28 20:00 | NUR ---
RN NOTES RECEIVED PT. VENT DEPENDENT , ST ON TELE MONITOR, ICU OVERFLOW, NOT IN DISTRESS, NG-TUBE IN PLACE CONNECTED TO SUCTION WALL, PT. IS ON LEVOPHED, F/C DRAINING CLEAR YELLOW URINE, ON BILATERAL SOFT WRIST RESTRAINTS, CIRCULATION ARE GOOD, SIDERAILSUPX2, CONTINUE TO MONITOR Addendum: 02/29/20 at 2303 by HILARIO STEWARD RN WRONG DATE, SHOULD BE FOR 02/29/20
[2020-02-28] MEDS: INSULIN GLARGINE, 100 UNIT/ML CARTRIDGE SQ SCH (22:36)
[2020-02-29] VITALS (23 sets, daily range): BP systolic 90–141; BP diastolic 54–97
[2020-02-29] MEDS: CEFEPIME 2 GM in IV D5W 100 ML IV SCH ×3 (01:21→11:29)
--- NOTE | 2020-02-29 03:15 | NUR ---
ICU-OF/PASSENGER SCREENER SAVANNAH LOONEY ACNP AT BEDSIDE TO SHAHZAD PT. NEW ORDERS RECEIVED AND CARRIED OUT.
[2020-02-29] MEDS ORDERED: LORAZEPAM INJ 2 MG/ML VIAL IV PRN (03:30)
[2020-02-29] MEDS: PROPOFOL 100 ML IV PRN ×6 (03:51→23:55)
[2020-02-29] MEDS: ACETAMINOPHEN 650 MG/SUPP.RECT RC PRN ×2 (04:38→21:46)
[2020-02-29] MEDS: ALBUTEROL SULFATE INH 18 GM HFA.AER.AD IH SCH ×3 (06:00→23:45)
[2020-02-29] MEDS: IPRATROPIUM BROMIDE 14 GM INHALER (or 12.9 GM) IH SCH ×3 (06:00→23:45)
[2020-02-29 06:08] LABS: CALCIUM, SERUM 9.1 mg/dL (8.5-10.1); CREATININE 1.8 mg/dL (0.6-1.3); MAGNESIUM 2.8 mg/dL (1.8-2.4); POTASSIUM 5.8 mmol/L (3.5-5.1)
[2020-02-29] MEDS: BLOOD SUGAR DIAGNOSTIC 1 EACH STRIP IN SCH ×3 (06:21→18:07)
[2020-02-29] MEDS: INSULIN REGULAR, HUMAN 100 UNIT/ML 3 ML VIAL SQ PRN ×2 (06:22→18:20)
[2020-02-29] MEDS: GEMFIBROZIL 600 MG TABLET PO SCH ×2 (06:22→16:30)
[2020-02-29] MEDS: PANTOPRAZOLE 40 MG TABLET.DR PO SCH (06:23)
[2020-02-29 06:36] LABS: BASOPHILS # (AUTO) 0.1 /CMM (0.0-0.2); BASOPHILS % (AUTO) 0.5 % (0.0-2.0); EOSINOPHILS % (AUTO) 0.6 % (0.0-6.0); HEMATOCRIT 53 % (39-51); HEMOGLOBIN 17.1 g/dL (13.5-17.5); LYMPHOCYTES # (AUTO) 0.7 /CMM (0.8-4.8); LYMPHOCYTES % (AUTO) 2.6 % (20.0-44.0); MEAN CORPUSCULAR HGB CONC 33 g/dl (31.0-36.0); MEAN CORPUSCULAR VOLUME 80 fL (80-96); MONOCYTES # (AUTO) 0.6 /CMM (0.1-1.30); MONOCYTES % (AUTO) 2.1 % (2.0-12.0); NEUTROPHILS # (AUTO) 25.6 /CMM (1.8-8.9); NEUTROPHILS % (AUTO) 94.2 % (43.0-81.0); PLATELET COUNT (AUTO) 174 /CMM (150-450); RED BLOOD CELL COUNT(AUTO) 6.56 MIL/uL (4.5-6.0); WHITE BLOOD COUNT (AUTO) 27.1 K/uL (4.3-11.0)
--- NOTE | 2020-02-29 08:00 | NUR ---
T RECEIVED IN BED ON HIGH FLOW AND NON-REBREATHER MASK, O2 SAT IN 87%. PT INTUBATED AT BEDSIDE, ON PRESCRIBED VENT SETTINGS ETT 7.5/26 CM, AC 30, TV 500, FIO2 100%, PEEP 10. PATIENT CURRENTLY SEDATED, AT BASELINE A/O X 4. PT ON MONITOR SHOWING SR/ST. PT BEDREST, SKIN INTACT. BED IN LOCKED LOWEST POSITION ,CALL LIGHT WITHIN REACH, ALL SAFETY MEASURES IN PLACE. WILL CONTINUE TO MONITOR CLOSELY
[2020-02-29] MEDS ORDERED: DEXTROSE 50%-WATER 50 ML DISP.SYRIN IVP ONE (09:41)
[2020-02-29] MEDS ORDERED: INSULIN REGULAR, HUMAN 100 UNIT/ML 3 ML VIAL IV ONE (09:42)
[2020-02-29] MEDS: MORPHINE SULFATE INJ 4 MG/ML DISP.SYRIN IV PRN ×2 (09:54→14:47)
--- NOTE | 2020-02-29 09:55 | NUR ---
RN NOTES PER WINSOME TONEY HOSPITALIST, ORDERED 4mg/mL of MORPHINE, ADMINISTERED BY PAIN MEDICATION IV BY WINSOME TONEY DNP, VIAL WAS NOT SCANNED DUE TO HOSPITALIST THROWING IT AWAY BY ACCIDENT. INFORMED PHARMACY AND CHARGE NURSE MADE AWARE. WILL CONTINUE TO MONITOR PATIENT.
[2020-02-29] MEDS ORDERED: SODIUM POLYSTYRENE SULFONATE 15 G/60 ML BOTTLE PO ONE (10:00)
[2020-02-29] MEDS ORDERED: INSULIN REGULAR, HUMAN 100 UNIT/ML 3 ML VIAL SQ PRN (10:30)
[2020-02-29] MEDS ORDERED: DEXTROSE 50%-WATER 50 ML DISP.SYRIN IV PRN (10:30)
[2020-02-29] MEDS: VANCOMYCIN 1.25 GM in IV D5W 250 ML IV SCH ×2 (11:23→11:29)
[2020-02-29] MEDS: CARVEDILOL 12.5 MG TABLET PO SCH ×2 (11:28→21:00)
[2020-02-29] MEDS: ASPIRIN EC 81 MG TABLET.DR PO SCH (11:30)
[2020-02-29] MEDS: ENOXAPARIN SODIUM 40 MG/0.4 ML DISP.SYRIN SQ SCH (11:33)
[2020-02-29] MEDS ORDERED: BLOOD SUGAR DIAGNOSTIC 1 EACH STRIP IN SCH (12:00)
[2020-02-29] MEDS: NOREPINEPHRINE 8 MG in IV NS 0.9% 242 ML IV PRN ×3 (18:30→23:55)
[2020-02-29] MEDS: IV NS 0.9% 1,000 ML IV PRN (18:38)
--- NOTE | 2020-02-29 20:00 | NUR ---
RN NOTES RECEIVED PT. VENT DEPENDENT , ST ON TELE MONITOR, ICU OVERFLOW, NOT IN DISTRESS, NG-TUBE IN PLACE CONNECTED TO SUCTION WALL, PT. IS ON LEVOPHED, F/C DRAINING CLEAR YELLOW URINE, ON BILATERAL SOFT WRIST RESTRAINTS, CIRCULATION ARE GOOD, SIDERAILSUPX2, CONTINUE TO MONITOR
[2020-02-29] MEDS: VANCOMYCIN 1 GM in IV D5W 250 ML IV SCH (23:00)
--- NOTE | 2020-02-29 23:00 | NUR ---
RN NOTES VANCO TROUGH-26, VANCOMYCIN IV WAS NOT GIVEN
[2020-02-29] MEDS ORDERED: NOREPINEPHRINE 8MG/250ML RTU 250 ML IV ONE (23:36)
[2020-03-01] VITALS (21 sets, daily range): BP systolic 95–144; BP diastolic 55–98
--- NOTE | 2020-03-01 | NUR ---
RN NOTES BLOOD SUGAR-258, NO COVERAGE WAS GIVEN PT IS ON NPO
[2020-03-01] MEDS: BLOOD SUGAR DIAGNOSTIC 1 EACH STRIP IN SCH ×4 (02:11→19:00)
[2020-03-01] MEDS ORDERED: NOREPINEPHRINE 8MG/250ML RTU 250 ML IV ONE (02:11)
[2020-03-01] MEDS: PROPOFOL 100 ML IV PRN ×9 (02:11→23:35)
[2020-03-01] MEDS: CEFEPIME 2 GM in IV D5W 100 ML IV SCH ×3 (02:12→22:09)
[2020-03-01] MEDS: NOREPINEPHRINE 8 MG in IV NS 0.9% 242 ML IV PRN ×8 (02:24→22:56)
[2020-03-01] MEDS ORDERED: NOREPINEPHRINE 4 MG/4 ML AMPUL IV ONE ×2 (03:58→03:59)
--- NOTE | 2020-03-01 06:28 | NUR ---
RN NOTES BLOOD SUGAR-245, NO COVERAGE GIVEN PT. IS ON NPO, PT IS NOT IN DISTRESS. NO PAIN NOTED, MORNING CARE RENDRED, PT. NEEDS ATTENDED
[2020-03-01] MEDS: ALBUTEROL SULFATE INH 18 GM HFA.AER.AD IH SCH ×2 (06:50→12:55)
[2020-03-01] MEDS: IPRATROPIUM BROMIDE 14 GM INHALER (or 12.9 GM) IH SCH ×2 (06:50→12:55)
[2020-03-01 07:15] LABS: BASOPHILS % (AUTO) 0.1 % (0.0-2.0); EOSINOPHILS % (AUTO) 0.6 % (0.0-6.0); HEMATOCRIT 48 % (39-51); HEMOGLOBIN 15.7 g/dL (13.5-17.5); LYMPHOCYTES # (AUTO) 1.5 /CMM (0.8-4.8); LYMPHOCYTES % (AUTO) 4.9 % (20.0-44.0); MEAN CORPUSCULAR HGB CONC 32 g/dl (31.0-36.0); MEAN CORPUSCULAR VOLUME 81 fL (80-96); MONOCYTES # (AUTO) 1.1 /CMM (0.1-1.30); MONOCYTES % (AUTO) 3.6 % (2.0-12.0); NEUTROPHILS # (AUTO) 28.2 /CMM (1.8-8.9); NEUTROPHILS % (AUTO) 90.8 % (43.0-81.0); PLATELET COUNT (AUTO) 140 /CMM (150-450); RED BLOOD CELL COUNT(AUTO) 5.96 MIL/uL (4.5-6.0)
[2020-03-01] MEDS: PANTOPRAZOLE 40 MG TABLET.DR PO SCH (07:30)
[2020-03-01] MEDS: GEMFIBROZIL 600 MG TABLET PO SCH ×2 (07:30→16:30)
[2020-03-01 08:20] LABS: ALBUMIN 1.7 g/dL (3.4-5.0); BILIRUBIN,TOTAL 0.4 mg/dL (0.2-1.0); CALCIUM, SERUM 8.2 mg/dL (8.5-10.1); CREATININE 3.3 mg/dL (0.6-1.3); MAGNESIUM 2.9 mg/dL (1.8-2.4); PHOSPHORUS 5.9 mg/dL (2.5-4.9); TOTAL PROTEIN, SERUM 6.3 g/dL (6.4-8.2)
[2020-03-01 08:22] LABS: POTASSIUM 6.4 mmol/L (3.5-5.1)
[2020-03-01 08:39] LABS: LYMPHOCYTES % (MANUAL) 6 % (16-48); MONOCYTES % (MANUAL) 4 % (0-11.0); NEUTROPHILS % (MANUAL) 90 (42-76)
[2020-03-01] MEDS: ASPIRIN EC 81 MG TABLET.DR PO SCH (09:00)
[2020-03-01] MEDS: CARVEDILOL 12.5 MG TABLET PO SCH ×2 (09:00→20:15)
[2020-03-01 09:32] LABS: ABG BASE EXCESS -14.4 mmol/L; ABG PCO2 46.2 mmHg (35.0-45.0); ABG PH 7.123 (7.350-7.450); ABG PO2 74.3 mmHg (75.0-100.0); AaDO2 592.5 mmHg; COHb 0.8 % (0.5-1.5); MetHb 0.3 % (0.0-1.5); PEEP,BG 14 cm H2O; SITE, ABG Left Radial; VT, ABG 500 mL
[2020-03-01] MEDS ORDERED: Sodium Bicarbonate 100 MEQ in IV D5W 1,000 ML IV PRN (10:00)
--- NOTE | 2020-03-01 10:00 | NUR ---
ms rn received a critical k level, bailey is brea, dr. nelson came to see pt w/ orders made and carried out.
[2020-03-01] MEDS: MORPHINE SULFATE INJ 4 MG/ML DISP.SYRIN IV PRN (10:23)
[2020-03-01] MEDS ORDERED: DEXTROSE 50%-WATER 50 ML DISP.SYRIN IV PRN (10:30)
[2020-03-01] MEDS ORDERED: DEXTROSE 50%-WATER 50 ML DISP.SYRIN IVP ONE (11:00)
[2020-03-01] MEDS ORDERED: SODIUM POLYSTYRENE SULFONATE 15 G/60 ML BOTTLE PO ONE (11:00)
[2020-03-01] MEDS ORDERED: SODIUM BICARBONATE SYR 50 MEQ/50 ML DISP.SYRIN IV ONE (11:00)
[2020-03-01] MEDS ORDERED: Calcium Gluconate 1GM/10ML 4.65 MEQ in IV D5W 50 ML IV ONE (11:15)
[2020-03-01] MEDS ORDERED: INSULIN REGULAR, HUMAN 100 UNIT/ML 10 ML VIAL IV ONE ×2 (12:00→13:30)
[2020-03-01] MEDS: VANCOMYCIN 1 GM in IV D5W 250 ML IV SCH (12:21)
[2020-03-01] MEDS: INSULIN GLARGINE, 100 UNIT/ML CARTRIDGE SQ SCH ×2 (12:41→20:44)
[2020-03-01] MEDS: HEPARIN SODIUM, PORCINE 5000 UNITS/1 ML VIAL SQ SCH ×2 (12:47→20:20)
--- NOTE | 2020-03-01 13:30 | NUR ---
ms rn [id number]- no coverage given,patient was given d/50, nabicarb and 6 units insulin, only for bs monitoring per dr. nelson
[2020-03-01 13:58] LABS: CREATININE 3.3 mg/dL (0.6-1.3)
[2020-03-01 14:00] LABS: POTASSIUM 6.5 mmol/L (3.5-5.1)
[2020-03-01 14:44] LABS: ABG BASE EXCESS -13.5 mmol/L; ABG OXYGEN SATURATION 93.9 % (92.0-98.5); ABG PCO2 42.1 mmHg (35.0-45.0); ABG PO2 74.7 mmHg (75.0-100.0); AaDO2 596.2 mmHg; COHb 0.5 % (0.5-1.5); MetHb 0.2 % (0.0-1.5); O2Hb 93.2 % (94.0-97.0); SITE, ABG Right Radial; VENT MODE, BG ac 30 550 100% +14
--- NOTE | 2020-03-01 15:00 | NUR ---
ms rn [id number]-no coverage given,patient was given d/50, nabicarb and 6 units insulin, only for bs monitoring per dr. nelson
[2020-03-01] MEDS: INSULIN REGULAR, HUMAN 100 UNIT/ML 3 ML VIAL SQ PRN (19:01)
[2020-03-01] MEDS: CLINDAMYCIN 900 MG in IV D5W 50 ML IV SCH (20:14)
[2020-03-01] MEDS: FLUCONAZOLE IN NS 100 MG in PREMIX 1 EA IV SCH ×2 (20:15)
[2020-03-01] MEDS ORDERED: CLINDAMYCIN IV RTU IN D5W 900 MG/50 ML PIGGYBACK IV SCH (21:00)
[2020-03-02] VITALS (33 sets, daily range): BP systolic 62–122; BP diastolic 36–82
[2020-03-02] MEDS: BLOOD SUGAR DIAGNOSTIC 1 EACH STRIP IN SCH ×4 (00:07→18:15)
[2020-03-02] MEDS: INSULIN REGULAR, HUMAN 100 UNIT/ML 3 ML VIAL SQ PRN ×4 (00:09→18:20)
[2020-03-02] MEDS: PROPOFOL 100 ML IV PRN ×9 (01:55→23:09)
[2020-03-02] MEDS: NOREPINEPHRINE 8 MG in IV NS 0.9% 242 ML IV PRN ×2 (03:10→08:06)
[2020-03-02] MEDS: CLINDAMYCIN 900 MG in IV D5W 50 ML IV SCH ×3 (04:20→22:00)
[2020-03-02] MEDS: ALBUTEROL SULFATE INH 18 GM HFA.AER.AD IH SCH ×4 (06:00→18:22)
[2020-03-02] MEDS: IPRATROPIUM BROMIDE 14 GM INHALER (or 12.9 GM) IH SCH ×4 (06:00→18:21)
[2020-03-02 07:18] LABS: BASOPHILS # (AUTO) 0.1 /CMM (0.0-0.2); BASOPHILS % (AUTO) 0.3 % (0.0-2.0); EOSINOPHILS % (AUTO) 1.4 % (0.0-6.0); HEMATOCRIT 44 % (39-51); HEMOGLOBIN 14.1 g/dL (13.5-17.5); LYMPHOCYTES # (AUTO) 1.3 /CMM (0.8-4.8); LYMPHOCYTES % (AUTO) 5.4 % (20.0-44.0); MEAN CORPUSCULAR HGB CONC 32 g/dl (31.0-36.0); MEAN CORPUSCULAR VOLUME 81 fL (80-96); MONOCYTES % (AUTO) 4.3 % (2.0-12.0); NEUTROPHILS # (AUTO) 20.5 /CMM (1.8-8.9); NEUTROPHILS % (AUTO) 88.6 % (43.0-81.0); PLATELET COUNT (AUTO) 103 /CMM (150-450); RED BLOOD CELL COUNT(AUTO) 5.41 MIL/uL (4.5-6.0); WHITE BLOOD COUNT (AUTO) 23.1 K/uL (4.3-11.0)
[2020-03-02] MEDS: PANTOPRAZOLE 40 MG TABLET.DR PO SCH (07:30)
[2020-03-02] MEDS: GEMFIBROZIL 600 MG TABLET PO SCH ×2 (07:30→16:30)
--- NOTE | 2020-03-02 07:40 | NUR ---
RN OPENING NOTES RECEIVED PT IN BED. ON [facility] VENT, SETTINGS: AC: 30, TV: 500, FIO2: 100%, PEEP: 5. TOLERATING SETTINGS WELL. O2 SAT @91%. PT ON MONITOR SHOWING NSR 90S. BERMUDEZ CATH OUTPUT @50ML. PT HAS JOSE MIDLINE AND LEFT HAND SALINE LOCK, BOTH INTACT AND PATENT. SAFETY MEASURES IN PLACE. CALL LIGHT WITHIN REACH. BED LOCKED AND IN LOWEST POSITION. WILL CONTINUE TO MONITOR
[2020-03-02] MEDS: CARVEDILOL 12.5 MG TABLET PO SCH ×2 (08:46→21:00)
[2020-03-02] MEDS: ASPIRIN EC 81 MG TABLET.DR PO SCH (08:46)
[2020-03-02] MEDS: CEFEPIME 2 GM in IV D5W 100 ML IV SCH ×3 (08:59→23:11)
[2020-03-02] MEDS: INSULIN GLARGINE, 100 UNIT/ML CARTRIDGE SQ SCH ×2 (09:04→21:09)
[2020-03-02] MEDS: HEPARIN SODIUM, PORCINE 5000 UNITS/1 ML VIAL SQ SCH ×2 (09:07→21:09)
[2020-03-02 09:30] LABS: BILIRUBIN,TOTAL 0.4 mg/dL (0.2-1.0); CALCIUM, SERUM 7.9 mg/dL (8.5-10.1); CREATININE 4.8 mg/dL (0.6-1.3); MAGNESIUM 2.8 mg/dL (1.8-2.4); TOTAL PROTEIN, SERUM 5.9 g/dL (6.4-8.2)
[2020-03-02 09:50] LABS: ALBUMIN 1.4 g/dL (3.4-5.0)
[2020-03-02] MEDS ORDERED: SODIUM POLYSTYRENE SULFONATE 15 G/60 ML BOTTLE PO ONE (10:30)
[2020-03-02 12:37] LABS: ABG BASE EXCESS -13.8 mmol/L; ABG PCO2 41.7 mmHg (35.0-45.0); ABG PH 7.157 (7.350-7.450); ABG PO2 64.3 mmHg (75.0-100.0); COHb 0.6 % (0.5-1.5); MetHb 0.2 % (0.0-1.5); O2Hb 90.3 % (94.0-97.0); PEEP,BG 14 cm H2O; SITE, ABG Left Radial; VENT MODE, BG AC 100%; VT, ABG 550 mL
[2020-03-02] MEDS: IV NS 0.9% 1,000 ML IV PRN (14:27)
[2020-03-02 16:38] LABS: ABG BASE EXCESS -12.6 mmol/L; ABG OXYGEN SATURATION 91.4 % (92.0-98.5); ABG PH 7.136 (7.350-7.450); ABG PO2 68.5 mmHg (75.0-100.0); AaDO2 594.5 mmHg; COHb 0.6 % (0.5-1.5); MetHb 0.2 % (0.0-1.5); O2Hb 90.7 % (94.0-97.0); PEEP,BG 16 cm H2O; SITE, ABG Right Radial; VT, ABG 60 mL
[2020-03-02] MEDS: NOREPINEPHRINE 32 MG in IV NS 0.9% 242 ML IV PRN (19:00)
--- NOTE | 2020-03-02 19:20 | NUR ---
RN CLOSING NOTES PT IN BED. TOLERATING VENT SETTINGS. O2 SAT @97%. BERMUDEZ CATH OUTPUT @500ML. JOSE PICCLINE RUNNING DIPRIVAN @80MCG AND LEVOPHED @0.4 MCG BOTH INFUSING WELL. FARIDEH MIDLINE RUNNING IVF OF 0.9 NS @75MLS/HR, INFUSING WELL. SAFETY MEASURES IN PLACE. CALL LIGHT WITHIN REACH. BED LOCKED AND IN LOWEST POSITION. ONGOING HD. WILL ENDORSE TO NIGHT NURSE FOR YOCASTA
--- NOTE | 2020-03-02 19:20 | NUR ---
PT IS CURRENTLY HAVING DIALYSIS, HD NURSE AT BEDSIDE LATEST BP 91/58 HR 107 SPO2 95% WILL CONT TO MONITOR
[2020-03-02] MEDS: FLUCONAZOLE IN NS 100 MG in PREMIX 1 EA IV SCH ×2 (21:11)
[2020-03-03] VITALS (16 sets, daily range): BP systolic 76–112; BP diastolic 34–62
[2020-03-03] MEDS: ALBUTEROL SULFATE INH 18 GM HFA.AER.AD IH SCH
[2020-03-03] MEDS ORDERED: VANCOMYCIN 1 GM in IV D5W 250 ML IV SCH ×2
[2020-03-03] MEDS: IPRATROPIUM BROMIDE 14 GM INHALER (or 12.9 GM) IH SCH
[2020-03-03] MEDS: BLOOD SUGAR DIAGNOSTIC 1 EACH STRIP IN SCH (00:14)
[2020-03-03] MEDS: INSULIN REGULAR, HUMAN 100 UNIT/ML 3 ML VIAL SQ PRN (00:15)
[2020-03-03] MEDS: NOREPINEPHRINE 32 MG in IV NS 0.9% 242 ML IV PRN (00:39)
--- NOTE | 2020-03-03 01:35 | NUR ---
REPORTED TO SAVANNAH LOONEY SOCIAL MEDIA CONTENT MANAGER COMMISSARY HELPER THAT PT BP IS 85/45 HR 122 AND PT IS ALREADY ON MAX LEVOPHED @1 MCG/KG/MIN, SAVANNAH LOONEY SOCIAL MEDIA CONTENT MANAGER ORDER NEOSYNEPHRINE TITRATE PER PROTOCOL, NOTED AND CARRIED OUT, WILL CONT TO MONITOR THE PT
[2020-03-03] MEDS: PROPOFOL 100 ML IV PRN ×2 (01:43→04:00)
[2020-03-03] MEDS ORDERED: PHENYLEPHRINE 100 MG in IV NS 0.9% 240 ML IV PRN (02:00)
--- NOTE | 2020-03-03 03:03 | NUR ---
RT NOTE PT REC'D ORALLY INTUBATED VIA ETT SZ #7.5. ETT CURRENTLY SECURED AT 26CM AT THE LIPLINE. PT ON [facility] VENT ON AC MODE SETTINGS CHARTED. PT SX'F FOR THICK SMALL AMT OF YELLOW SECRETIONS. VENT PLUGGED INTO RED OUTLET. AMBU BAG BEDSIDE. ALARMS ARE SET AND AUDIBLE. WILL CONTINUE TO MONITOR CLOSELY Addendum: 03/03/20 at 0304 by RICKI GROSS RT Amended: Links added.
--- NOTE | 2020-03-03 04:25 | NUR ---
REPORTED TO SAVANNAH NIELSEN THAT PT HR IS GOING 130-140 AND INFORMED HER ALL THE DRIPS THAT CURRENTLY RUNNING WITH ORDER TO GIVE PAIN MEDS PRN NOTED AND CARRIED OUT
[2020-03-03] MEDS: MORPHINE SULFATE INJ 4 MG/ML DISP.SYRIN IV PRN (04:49)
--- NOTE | 2020-03-03 05:27 | NUR ---
CHARGE NURSE CALL MY ATTENTION DUE TO CHANGE OF PT TELE RHYTHM, WE SAW IT VTACH, I CHECKED THE PT AND WHEN I ENTER THE ROOM AND CHECKED HIS PULSE I NOTICE THAT HE BECOME PULSELESS AND I CALLED FARHAD QUIROZ AND START CHEST COMPRESSION..
--- NOTE | 2020-03-03 05:38 | NUR ---
CALLED THE NEPHEW [phone] BARRETT AND INFORMED HIM THAT HIS UNCLE IS CURRENTLY ON CODE BLUE, HE SAID HE WILL INFORMED THE AND SON
--- NOTE | 2020-03-03 05:57 | NUR ---
RECEIVED CALL FROM FAMILY KARLY GARCIA AND INFORMED HIM THAT HIS DAD PASS AWAY AROUND 0550, THEY CAN SEWAGE PLANT SUPERVISOR THE BODY ON THE [place] AND THEY CAN BRING THEIR OWN /OR MORTUARY
--- NOTE | 2020-03-03 06:52 | NUR ---
RECEIVED CALL FROM MR SARMIENTO THE NEPHEW OF THE PT AND EXPLAINED TO HIM ABOUT WHAT HAPPEN
== END 2020-03-03 05:45 | disposition expired | DRG 137 ==
LOC: ER 16:37 → OBSER 02-17 02:41 → TRANSITION 02-17 08:09 → TELE1 02-17 13:32 → MEDSG1 02-18 13:55 → TELE1 02-21 12:03 → ICUOV 02-21 13:02 → TELE1 02-23 08:22 → ICUOV 02-25 03:53
PROVIDERS: ADMIT Registered Nurse; ATTEND Nurse Practitioner Acute Care
PROC: XW033E5 Introduction of Remdesivir Anti-infective into Peripheral Vein, Percutaneous Approach, New Technology Group 5 (ICD-10-PCS; principal; 2020-02-18)
PROC: 05HY33Z Insertion of Infusion Device into Upper Vein, Percutaneous Approach (ICD-10-PCS; 2020-02-27)
PROC: 0BH18EZ Insertion of Endotracheal Airway into Trachea, Via Natural or Artificial Opening Endoscopic (ICD-10-PCS; 2020-02-28)
PROC: 5A1945Z Respiratory Ventilation, 24-96 Consecutive Hours (ICD-10-PCS; 2020-02-28)
PROC: 06HY33Z Insertion of Infusion Device into Lower Vein, Percutaneous Approach (ICD-10-PCS; 2020-03-02)
PROC: 5A1D70Z Performance of Urinary Filtration, Intermittent, Less than 6 Hours Per Day (ICD-10-PCS; 2020-03-02)
PROC: 02HV33Z Insertion of Infusion Device into Superior Vena Cava, Percutaneous Approach (ICD-10-PCS; 2020-03-03)
PROC: B548ZZA Ultrasonography of Superior Vena Cava, Guidance (ICD-10-PCS; 2020-03-03)
DX: U07.1 COVID-19 (principal); A41.89 Other specified sepsis; J96.01 Acute respiratory failure with hypoxia; J12.89 Other viral pneumonia; I10 Essential (primary) hypertension; K21.9 Gastro-esophageal reflux disease without esophagitis; D69.6 Thrombocytopenia, unspecified; E44.1 Mild protein-calorie malnutrition; E66.9 Obesity, unspecified; Z68.34 Body mass index [BMI] 34.0-34.9, adult; Z79.84 Long term (current) use of oral hypoglycemic drugs; Z87.891 Personal history of nicotine dependence; E78.5 Hyperlipidemia, unspecified; Z79.01 Long term (current) use of anticoagulants; D72.810 Lymphocytopenia; E11.65 Type 2 diabetes mellitus with hyperglycemia; Z90.49 Acquired absence of other specified parts of digestive tract; Z79.899 Other long term (current) drug therapy; Z98.890 Other specified postprocedural states; Z79.82 Long term (current) use of aspirin; R74.01 Elevation of levels of liver transaminase levels; J15.9 Unspecified bacterial pneumonia; N17.0 Acute kidney failure with tubular necrosis; R65.21 Severe sepsis with septic shock; E87.5 Hyperkalemia; E87.1 Hypo-osmolality and hyponatremia; E87.4 Mixed disorder of acid-base balance; M89.9 Disorder of bone, unspecified; G92 Toxic encephalopathy; E86.1 Hypovolemia; I70.0 Atherosclerosis of aorta; J43.9 Emphysema, unspecified
CPT/HCPCS: 31720; 36415; 36600; 71045-TC; 71046; 76770-TC; 80048-TC; 80053-TC; 80061-TC; 80076-TC; 80202-TC; 82550-TC; 82728-TC; 82803-TC; 82962-TC; 83605-TC; 83615-TC; 83735-TC; 84100-TC; 84443-TC; 84484-TC; 85025-TC; 85378-TC; 85610-TC; 85730-TC; 86140-TC; 86706; 87040-TC; 87081-TC; 87340; 90935-TC; 92950-TC; 94002-TC; 94003-TC; 94760-TC; 94762-TC; 94799-TC; A4216; A4217; A6253; C1750; C1751; C9803; G0378; J0456; J0610; J0692; J0696; J1100; J1450; J1644; J1650; J1815; J1940; J2060; J2270; J2370; J2543; J3370; J3490; J7030; J7050; J7060; J7070; Q9967; U0003